=== PATIENT | female | born 1975 | race Caucasian/White ===

== ENCOUNTER → 2017-01-29 | Outpatient (CLI) | payer OTHER ==
--- NOTE | 2017-01-31 11:33 | MM ---
Reason for exam: screening (asymptomatic). Last mammogram was performed 4 years and 1 month ago. History: Family history of breast cancer in maternal aunt. Benign US left guided mammotome of the left breast, February 23, 2008. Benign US left CoreBiopsy of both breasts, February 23, 2008. Physical Findings: A clinical breast exam by your physician is recommended on an annual basis and results should be correlated with mammographic findings. MG Screening Mammo w CAD Bilateral CC and MLO view(s) were taken. Prior study comparison: January 11, 2013, bilateral digital screening mammo w/CAD. June 29, 2012, left diagnostic mammogram w/CAD. The breast tissue is heterogeneously dense. This may lower the sensitivity of mammography. Previous mammotome biopsy in the left breast x 2. There is no discrete abnormality. ASSESSMENT: Benign, BI-RAD 2 RECOMMENDATION: Routine screening mammogram of both breasts in 1 year.
== END ==
LOC: RADMAMWWP 09:26
PROVIDERS: ATTEND Obstetrics & Gynecology
DX: Z12.31 Encounter for screening mammogram for malignant neoplasm of breast (principal)

== ENCOUNTER 2017-02-22 15:44 | Emergency (ER) | payer OTHER ==
[2017-02-22] MEDS ORDERED: FAMOTIDINE 20 MG/2 ML VIAL IV STA (17:29)
--- NOTE | 2017-02-22 17:32 | ED ---
Abdominal Pain HPI - General Chief Complaint: Abdominal Pain Stated Complaint: abd pain Time Seen by Provider: 02/22/17 16:51 Source: patient, RN notes reviewed Mode of arrival: ambulatory Limitations: no limitations - History of Present Illness Initial Comments: Patient is a 41-year-old female presents to the emergency room for evaluation of abdominal pain. Patient states she has been having right upper quadrant/ midepigastric pain for the past week. Patient states she has pain every time she eats. Patient does state she has a history of gastritis. Patient states she had a cholecystectomy 2008 with no complications. Patient states that she follow-up with her primary care provider yesterday and she sent home with Protonix. Patient states she took Protonix last night with no relief of symptoms. Patient also states that she was prescribed Bentyl but has not taken that medication yet. Patient denies any significant pain at the moment. Patient states she's having 3 out of 10 pain. Patient denies any current nausea or vomiting. Patient does also states she's been having diarrhea. Patient denies new foods or recent travel outside the country. Patient denies blood in stools. Patient does state that she has been on a diet plan that is high in protein low in carbs. SPatient also states that she's been taking a few diet pills. Patient is not sure if this is what causing her symptoms. Patient states she discontinued the diet pills. Patient denies chest pain or shortness of breath. Patient denies any significant past medical history. Patient denies being on any medications besides besides what was prescribed to her yesterday. - Related Data Home Medications Medication Instructions Recorded Confirmed Pantoprazole [Protonix] 40 mg PO DAILY 02/22/17 02/22/17 Allergies Allergy/AdvReac Type Severity Reaction Status Date / Time No Known Allergies Allergy Verified 02/22/17 17:04 Review of Systems ROS Statement: Those systems with pertinent positive or pertinent negative responses have been documented in the HPI. ROS Other: All systems not noted in ROS Statement are negative. Past Medical History Additional Past Medical History / Comment(s): CONSTIPATION, DIARRHEA, HX OF POLYP History of Any Multi-Drug Resistant Organisms: None Reported Past Surgical History: Section, Cholecystectomy Additional Past Surgical History / Comment(s): COLONOSCOPY, EGD Past Anesthesia/Blood Transfusion Reactions: No Reported Reaction Past Psychological History: Depression Smoking Status: Never smoker Past Alcohol Use History: Rare Past Drug Use History: None Reported - Past Family History Father Family Medical History: Cancer General Exam - General Exam Comments Initial Comments: Sitting on exam bed, no acute distress. Limitations: no limitations General appearance: alert, in no apparent distress Head exam: Present: atraumatic, normocephalic, normal inspection Eye exam: Present: normal appearance ENT exam: Present: normal exam Neck exam: Present: normal inspection Respiratory exam: Present: normal lung sounds bilaterally. Absent: respiratory distress Cardiovascular Exam: Present: regular rate, normal rhythm, normal heart sounds GI/Abdominal exam: Present: soft, tenderness (Midepigastric), normal bowel sounds. Absent: distended, guarding, rebound, rigid Extremities exam: Present: normal inspection Back exam: Present: normal inspection Neurological exam: Present: alert, oriented X3, CN II-XII intact, normal gait Psychiatric exam: Present: normal affect, normal mood Skin exam: Present: warm, dry, intact, normal color. Absent: rash Course Vital Signs 02/22/17 16:13 Temperature 97.7 F Pulse Rate 67 Respiratory 16 Rate Blood Pressure 117/74 O2 Sat by Pulse 98 Oximetry Medical Decision Making - Medical Decision Making Patient is a 41-year-old female presents to the emergency room for epigastric pain after eating. Labs show no acute findings. CT abdomen/pelvis show no acute findings. Patient states the GI cocktail did not worsen or improve her symptoms because she's not having any significant pain at the moment. Advised patient to follow-up with GI specialist for further evaluation and possible endoscopy to rule out gastric ulcer. Advised patient to continue taking her medications as prescribed to her yesterday from her primary care provider. Patient states she understands everything that was discussed with her. Return parameters discussed. Case discussed with Dr. Rivera. - Lab Data Result diagrams: 02/22/17 17:20 02/22/17 17:20 Lab Results 02/22/17 02/22/17 02/22/17 Range/Units 17:07 17:07 17:20 WBC (3.8-10.6) k/uL RBC (3.80-5.40) m/uL Hgb (11.4-16.0) gm/dL Hct (34.0-46.0) % MCV (80.0-100.0) fL MCH (25.0-35.0) pg MCHC (31.0-37.0) g/dL RDW (11.5-15.5) % Plt Count (150-450) k/uL Neutrophils % % Lymphocytes % % Monocytes % % Eosinophils % % Basophils % % Neutrophils # (1.3-7.7) k/uL Lymphocytes # (1.0-4.8) k/uL Monocytes # (0-1.0) k/uL Eosinophils # (0-0.7) k/uL Basophils # (0-0.2) k/uL Sodium 141 (137-145) mmol/L Potassium 3.9 (3.5-5.1) mmol/L Chloride 104 (98-107) mmol/L Carbon Dioxide 24 (22-30) mmol/L Anion Gap 13 mmol/L BUN 8 (7-17) mg/dL Creatinine 0.61 (0.52-1.04) mg/dL Est GFR (MDRD) Af Amer >60 (>60 ml/min/1.73 sqM) Est GFR (MDRD) Non-Af >60 (>60 ml/min/1.73 sqM) Glucose 85 (74-99) mg/dL Calcium 9.5 (8.4-10.2) mg/dL Total Bilirubin 1.3 (0.2-1.3) mg/dL AST 28 (14-36) U/L ALT 36 (9-52) U/L Alkaline Phosphatase 83 (38-126) U/L Total Protein 7.9 (6.3-8.2) g/dL Albumin 4.5 (3.5-5.0) g/dL Amylase 78 (30-110) U/L Lipase 153 (23-300) U/L Urine Color Yellow Urine Appearance Clear (Clear) Urine pH 7.0 (5.0-8.0) Ur Specific Morris 1.010 (1.001-1.035) Urine Protein Negative (Negative) Urine Glucose (UA) Negative (Negative) Urine Ketones Negative (Negative) Urine Blood Negative (Negative) Urine Nitrite Negative (Negative) Urine Bilirubin Negative (Negative) Urine Urobilinogen <2.0 (<2.0) mg/dL Ur Leukocyte Esterase Negative (Negative) Urine HCG, Qual Not Detected (Not Detectd) 02/22/17 Range/Units 17:20 WBC 9.3 (3.8-10.6) k/uL RBC 5.14 (3.80-5.40) m/uL Hgb 15.6 (11.4-16.0) gm/dL Hct 46.1 H (34.0-46.0) % MCV 89.6 (80.0-100.0) fL MCH 30.3 (25.0-35.0) pg MCHC 33.8 (31.0-37.0) g/dL RDW 13.2 (11.5-15.5) % Plt Count 183 (150-450) k/uL Neutrophils % 59 % Lymphocytes % 24 % Monocytes % 4 % Eosinophils % 11 % Basophils % 1 % Neutrophils # 5.5 (1.3-7.7) k/uL Lymphocytes # 2.2 (1.0-4.8) k/uL Monocytes # 0.4 (0-1.0) k/uL Eosinophils # 1.0 H (0-0.7) k/uL Basophils # 0.1 (0-0.2) k/uL Sodium (137-145) mmol/L Potassium (3.5-5.1) mmol/L Chloride (98-107) mmol/L Carbon Dioxide (22-30) mmol/L Anion Gap mmol/L BUN (7-17) mg/dL Creatinine (0.52-1.04) mg/dL Est GFR (MDRD) Af Amer (>60 ml/min/1.73 sqM) Est GFR (MDRD) Non-Af (>60 ml/min/1.73 sqM) Glucose (74-99) mg/dL Calcium (8.4-10.2) mg/dL Total Bilirubin (0.2-1.3) mg/dL AST (14-36) U/L ALT (9-52) U/L Alkaline Phosphatase (38-126) U/L Total Protein (6.3-8.2) g/dL Albumin (3.5-5.0) g/dL Amylase (30-110) U/L Lipase (23-300) U/L Urine Color Urine Appearance (Clear) Urine pH (5.0-8.0) Ur Specific Morris (1.001-1.035) Urine Protein (Negative) Urine Glucose (UA) (Negative) Urine Ketones (Negative) Urine Blood (Negative) Urine Nitrite (Negative) Urine Bilirubin (Negative) Urine Urobilinogen (<2.0) mg/dL Ur Leukocyte Esterase (Negative) Urine HCG, Qual (Not Detectd) - Radiology Data Radiology results: report reviewed, image reviewed Disposition Clinical Impression: Abdominal pain, GERD (gastroesophageal reflux disease) Disposition: HOME SELF-CARE Condition: Good Instructions: Gastroesophageal Reflux Disease (ED), Diet for Stomach Ulcers and Gastritis (ED) Additional Instructions: Please follow up with GI specialist for further evaluation. Continue taking Protonix as directed. If any new symptom arises or symptoms worsen, return to ER as soon as possible. Referrals: Britni Tadeo MD [Primary Care Provider] - 1-2 days Tiesha La MD [STAFF PHYSICIAN] - 1-2 days Time of Disposition: 19:40
[2017-02-22 17:33] LABS: Appearance,Urine Clear (Clear); Bilirubin,Urine Negative (Negative); Glucose,Urine (UA) Negative (Negative); Ketones,Urine Negative (Negative); Leukocyte Esterase,Urine Negative (Negative); Nitrite,Urine Negative (Negative); Protein,Urine Negative (Negative); UA Billing (MACRO vs. MICRO) CHEM; Urobilinogen,Urine <2.0 mg/dL (<2.0)
[2017-02-22 17:36] LABS: Basophils # (A) 0.1 k/uL (0-0.2); Basophils % (A) 1 %; CH 30.8; CHCM 34.6; Eosinophils % (A) 11 %; HCT 46.1 % (34.0-46.0); HDW 2.48; HGB 15.6 gm/dL (11.4-16.0); Luc # (Auto) 0.16; Luc % (Auto) 2; Lymphocytes # (A) 2.2 k/uL (1.0-4.8); Lymphocytes % (A) 24 %; MCH 30.3 pg (25.0-35.0); MCHC 33.8 g/dL (31.0-37.0); MCV 89.6 fL (80.0-100.0); Mean Platelet Volume 9.1; Monocytes # (A) 0.4 k/uL (0-1.0); Monocytes % (A) 4 %; Neutrophils # (A) 5.5 k/uL (1.3-7.7); Neutrophils % (A) 59 %; RBC 5.14 m/uL (3.80-5.40); RDW 13.2 % (11.5-15.5); WBC 9.3 k/uL (3.8-10.6); WBC (Perox) 9.33
[2017-02-22 17:44] LABS: ALT 36 U/L (9-52); AST 28 U/L (14-36); Alkaline Phosphatase 83 U/L (38-126); Amylase 78 U/L (30-110); Anion Gap 13 mmol/L; Blood Urea Nitrogen 8 mg/dL (7-17); Calcium 9.5 mg/dL (8.4-10.2); Carbon Dioxide 24 mmol/L (22-30); Chloride 104 mmol/L (98-107); Glucose 85 mg/dL (74-99); Non-African American GFR(MDRD) >60 (>60 ml/min/1.73 sqM); Potassium 3.9 mmol/L (3.5-5.1); Sodium 141 mmol/L (137-145); Total Bilirubin 1.3 mg/dL (0.2-1.3); Total Protein 7.9 g/dL (6.3-8.2)
--- NOTE | 2017-02-22 18:03 | XR ---
EXAMINATION TYPE: Abdominal radiographs x2 DATE OF EXAM: 02/22/2017 5:42 PM COMPARISON: NONE HISTORY: Epigastric pain radiating around to the back with nausea for a week TECHNIQUE: 2 upright radiographs. FINDINGS: There is no pneumatosis and no pneumoperitoneum. The bowel gas pattern is negative. There i s no evidence of soft tissue mass, and the skeletal structures are unremarkable. Cholecystectomy surg ical clips are incidentally noted. The visualized lung bases and pleural spaces are negative. IMPRESSION: No acute process.
[2017-02-22] MEDS ORDERED: RX INFO: IV CONTRAST WAS GIVEN 1 EACH MISC MISCELLANE PRN (18:24)
[2017-02-22] MEDS ORDERED: MAG HYDROX/AL HYDROX/SIMETH 30 ML, HYOSCYAMINE ELIXIR 10 ML, CIMETIDINE HCL 300 MG, LID... PO STA ×4 (18:25)
--- NOTE | 2017-02-22 19:34 | CT ---
EXAMINATION TYPE: CT abdomen pelvis w con DATE OF EXAM: 02/22/2017 6:54 PM COMPARISON: NONE HISTORY: Pt states of epigastric pain after eating x1 week. CT DLP: 667.6 mGycm Automated exposure control for dose reduction was used. TECHNIQUE: Helical acquisition of images was performed from the lung bases through the pelvis. CONTRAST: Performed without Oral Contrast and with IV Contrast, patient injected with 100 mL of Omnipaque 300. FINDINGS: LUNG BASES: No significant abnormality is appreciated. LIVER/GB: No significant abnormality is appreciated. PANCREAS: No significant abnormality is seen. SPLEEN: No significant abnormality is seen. ADRENALS: No significant abnormality is seen. KIDNEYS: No significant abnormality is seen. RETROPERITONEAL ADENOPATHY: None visualized REPRODUCTIVE ORGANS: No significant abnormality is seen URINARY BLADDER: No significant abnormality is seen. PELVIC ADENOPATHY: None visualized. OSSEOUS STRUCTURES: No significant abnormality is seen. BOWEL: No significant abnormality is seen. OTHER: Incidental note is made of bilateral prominent adnexal/broad ligament varices. The uterus is n ot enlarged and has otherwise normal CT appearance. IMPRESSION: NO ACUTE PROCESS.
[2017-02-22 20:11] VITALS: BP 108/65; PULSE 66; RESP 18; TEMP 97.9
== END 2017-02-22 20:11 | disposition home or self-care (01) ==
LOC: EC 15:44
DX: K21.9 Gastro-esophageal reflux disease without esophagitis (principal); Z79.899 Other long term (current) drug therapy
CPT/HCPCS: 36415; 80053; 82150; 83690; 85025; 81003; 81025; 74000; 74177; 99284; Q9967

== ENCOUNTER 2017-02-28 12:12 | Day surgery (SDC) | payer OTHER ==
[2017-02-24 15:47] VITALS: BMI 32.8
[~2017-02-28 12:12] MED LIST: LACTATED RINGERS 1,000 ML IV SCH
[2017-02-28] MEDS ORDERED: LACTATED RINGERS 1,000 ML IV ONE (12:26)
[2017-02-28 12:35] VITALS: TEMP 98
[2017-02-28] MEDS ORDERED: LIDOCAINE 1% 20 ML VIAL (10MG/ML) FOR IV START INTRADERMA ONE (12:48)
[2017-02-28] MEDS ORDERED: LIDOCAINE 1% INJ 10MG/ML (20 ML MDV) ONE (13:42)
[2017-02-28] MEDS ORDERED: PROPOFOL 10 MG/ML 20 ML VIAL IV ONE (13:42)
[2017-02-28 14:09] VITALS: PULSE 70
--- NOTE | 2017-02-28 14:11 | P.PCN ---
Date of Procedure: 02/28/17 Procedure(s) Performed: Procedure: Esophagogastroduodenoscopy and biopsy. Preoperative diagnosis: Acute epigastric pain rule out peptic ulcer disease. Postoperative diagnosis: Small sliding hiatal hernia with no obvious esophagitis or complicated reflux disease. Mild antral gastritis. No ulcers, gastric outlet obstruction or bleeding. Multiple biopsies obtained from the duodenum, antrum and esophagus. Preparation and sedation: Was provided by anesthesia. Brief clinical history: The patient is a 41-year-old female who is referred for this evaluation for acute onset of epigastric pain for possible peptic ulcer disease. The patient had prior cholecystectomy. She had an upper endoscopy and colonoscopy back in August 2016 for chronic stomach upset symptoms of around 6 months duration and was found to have mild gastritis. The patient received Zantac which she was still taking until the onset of her current symptoms around 1-1/2 to 2 weeks ago. The patient has been complaining of postprandial epigastric pain and indigestion feeling that would last for several hours. Associated with nausea but no vomiting. For the last week, she was having diarrhea as well. The patient was started on Protonix as outpatient, however, as she has not improved, this evaluation was requested to rule out peptic ulcer disease or other pathology. Procedure: With the patient on her left lateral decubitus position and after informed consent and adequate sedation, I passed the Olympus-GIF 160 video upper endoscope through the cricopharyngeus down the esophagus. GE junction was around 35-36 cm from the incisors and there was a small sliding hiatal hernia. The esophagus did not show any obvious erosions, ulcers, strictures or Mercedes's esophagus. The endoscope was then advanced into the stomach which was insufflated with air and inspected in detail including the retroflex view in the cardia. There was some mottling and erythema in the antrum but no ulcers or erosions. Pyloric channel did not show any ulcers. Duodenal bulb, post bulbar area and descending duodenum showed minimal erythema with no ulcers or erosions. I obtained multiple biopsies from the duodenum, antrum and esophagus then the endoscope was withdrawn. The patient tolerated the procedure well. Plan: The patient was reassured. Will await biopsy results. She will follow- up with you as planned and further plans will be made based on her course.
[2017-02-28 14:28] VITALS: BP 118/56; RESP 18
== END 2017-02-28 14:43 | disposition home or self-care (01) ==
LOC: ORWHC2ENDO 12:12
DX: K29.50 Unspecified chronic gastritis without bleeding (principal); K44.9 Diaphragmatic hernia without obstruction or gangrene; K21.9 Gastro-esophageal reflux disease without esophagitis; R13.10 Dysphagia, unspecified; Z79.899 Other long term (current) drug therapy
CPT/HCPCS: 81025; 88305; 88342; 43239; J2001; J2704

== ENCOUNTER → 2017-12-15 | Outpatient (CLI) | payer OTHER | END | disposition home or self-care (01) | LOC: LABWHC1 12:30 | PROVIDERS: ATTEND Internal Medicine | DX: R50.9 Fever, unspecified (principal); K52.9 Noninfective gastroenteritis and colitis, unspecified | CPT/HCPCS: 87502 ==

== ENCOUNTER → 2018-03-01 | Outpatient (CLI) | payer OTHER ==
--- NOTE | 2018-03-01 11:29 | MM ---
Reason for exam: clinical finding. Last mammogram was performed 1 year and 1 month ago. History: Family history of breast cancer in maternal aunt. Benign US left guided mammotome of the left breast, February 23, 2008. Benign US left CoreBiopsy of both breasts, February 23, 2008. Physical Findings: Nurse Summary: 0.5cm nodule in the left breast at 3 o'clock (nurse tracie). MG Diagnostic Mammo w CAD PETER Bilateral CC and MLO view(s) were taken. Prior study comparison: January 29, 2017, bilateral MG screening mammo w CAD. January 11, 2013, bilateral digital screening mammo w/CAD. The breast tissue is heterogeneously dense. This may lower the sensitivity of mammography. Finding: There is an equal density (isodense), indistinct irregular mass in the upper quadrant, posterior position of the right breast, different in appearance, likely projectional. Previous mammotome biopsy in the left breast x 2. New finding since January 29, 2017 and January 11, 2013. These results were verbally communicated with the patient and result sheet given to the patient on 03/01/18. ASSESSMENT: Incomplete: need additional imaging evaluation, BI-RAD 0 RECOMMENDATION: Ultrasound of the right breast.
--- NOTE | 2018-03-01 11:30 | USB ---
Reason for exam: additional evaluation requested from abnormal screening. History: Family history of breast cancer in maternal aunt. Benign US left guided mammotome of the left breast, February 23, 2008. Benign US left CoreBiopsy of both breasts, February 23, 2008. US Breast Limited RT Right breast ultrasound demonstrates a 0.3 x 0.2 x 0.4cm lesion too small to characterize at 3 o'clock. These results were verbally communicated with the patient and result sheet given to the patient on 03/01/18. ASSESSMENT: Probably benign, BI-RAD 3 RECOMMENDATION: Follow-up diagnostic mammogram of the right breast in 6 months.
== END | disposition home or self-care (01) ==
LOC: RADMAMWWP 10:14
PROVIDERS: ATTEND Obstetrics & Gynecology
DX: N63.10 Unspecified lump in the right breast, unspecified quadrant (principal)
CPT/HCPCS: 77066

== ENCOUNTER → 2018-05-30 | Outpatient (CLI) | payer OTHER ==
--- NOTE | 2018-05-30 10:24 | MM ---
Reason for exam: follow-up at short interval from prior study. Last mammogram was performed 3 months ago. History: Family history of breast cancer in maternal aunt. Benign US left guided mammotome of the left breast, February 23, 2008. Benign US left CoreBiopsy of both breasts, February 23, 2008. Physical Findings: Nurse Summary: 0.5cm nodule in the right breast at 3 o'clock (nurse mj). MG 3D Diag Mammo W/Cad RT CC, MLO, and ML view(s) were taken of the right breast. Prior study comparison: March 01, 2018, bilateral MG diagnostic mammo w CAD PETER. January 29, 2017, bilateral MG screening mammo w CAD. The breast tissue is heterogeneously dense. This may lower the sensitivity of mammography. The known 3 o'clock, 4cm from nipple, 4mm mass seen sonographically 03/01/18 is not seen mammographically and will be followed with ultrasound today. Upper outer quadrant focal asymmetry at posterior depth appears similar to the prior. However, precautionary ultrasound will be performed. These results were verbally communicated with the patient and result sheet given to the patient on 05/30/18. ASSESSMENT: Incomplete: need additional imaging evaluation, BI-RAD 0 RECOMMENDATION: Ultrasound of the right breast. (upper right breast and retroareolar palpable)
--- NOTE | 2018-05-30 10:28 | USB ---
Reason for exam: additional evaluation requested from abnormal screening. History: Family history of breast cancer in maternal aunt. Benign US left guided mammotome of the left breast, February 23, 2008. Benign US left CoreBiopsy of both breasts, February 23, 2008. US Breast Limited RT Right limited breast ultrasound including focal area of concern, retroareolar and axilla demonstrates a 5 x 4 x 5mm oval, cystic lesion at 11 o'clock, a 3 x 2 x 3mm oval, cystic lesion at 3 o'clock appears cystic today and smaller than prior however being this appeared solid on the prior a 6 month follow up ultrasound remains recommended and a 5mm oval, lymph node at the axilla tail, morphologically normal. These results were verbally communicated with the patient and result sheet given to the patient on 05/30/18. ASSESSMENT: Probably benign, BI-RAD 3 RECOMMENDATION: Ultrasound and follow-up diagnostic mammogram of the right breast in 6 months. (for superior asymmetry on ML view only)
== END | disposition home or self-care (01) ==
LOC: RADMAMWWP 08:55
PROVIDERS: ATTEND Surgery
DX: R92.8 Other abnormal and inconclusive findings on diagnostic imaging of breast (principal)
CPT/HCPCS: 77061; 77065

== ENCOUNTER → 2018-12-04 | Outpatient (CLI) | payer OTHER ==
--- NOTE | 2018-12-05 15:19 | MM ---
Reason for exam: follow-up at short interval from prior study. Last mammogram was performed 6 months ago. History: Family history of breast cancer in maternal aunt. Benign US left guided mammotome of the left breast, February 23, 2008. Benign US left CoreBiopsy of both breasts, February 23, 2008. Indicated problem(s): other indicated problem in the right breast. Physical Findings: Nurse Summary: less than a 1 cm movable lesion right breast. MG 3D Diag Mammo W/Cad RT CC and MLO view(s) were taken of the right breast. Prior study comparison: May 30, 2018, right breast MG 3d diag mammo w/cad RT. March 01, 2018, bilateral MG diagnostic mammo w CAD PETER. The breast tissue is heterogeneously dense. This may lower the sensitivity of mammography. There are benign-appearing round calcification in the right breast. No discrete abnormality. These results were verbally communicated with the patient and result sheet given to the patient on 12/04/18. ASSESSMENT: Incomplete: need additional imaging evaluation, BI-RAD 0 RECOMMENDATION: Ultrasound of the right breast.
--- NOTE | 2018-12-05 15:26 | USB ---
Reason for exam: clinical finding. History: Family history of breast cancer in maternal aunt. Benign US left guided mammotome of the left breast, February 23, 2008. Benign US left CoreBiopsy of both breasts, February 23, 2008. Indicated problem(s): palpable abnormality in the right breast. Physical Findings: Nurse Summary: less than a 1 cm palpable abnormality right breast. US Breast RT Right complete breast ultrasound includes all four quadrants, the retroareolar region and axilla. Finding demonstrates a 4 x 2 x 3 mm cystic lesion at 3 o'clock, a 4 x 3 x 4 mm cluster cystic lesion at 11 o'clock and at the palpable ductal ectasia is seen. These results were verbally communicated with the patient and result sheet given to the patient on 12/04/18. ASSESSMENT: Benign, BI-RAD 2 RECOMMENDATION: Routine screening mammogram of both breasts in 6 months.
== END | disposition home or self-care (01) ==
LOC: RADMAMWWP 08:56
PROVIDERS: ATTEND Surgery
DX: R92.8 Other abnormal and inconclusive findings on diagnostic imaging of breast (principal)
CPT/HCPCS: 77061; 77065

== ENCOUNTER → 2019-06-04 | Outpatient (CLI) | payer OTHER ==
--- NOTE | 2019-06-05 13:17 | MM ---
Reason for exam: screening (asymptomatic). Last mammogram was performed 6 months ago. History: Family history of breast cancer in maternal aunt. Benign US left guided mammotome of the left breast, February 23, 2008. Benign US left CoreBiopsy of both breasts, February 23, 2008. Physical Findings: A clinical breast exam by your physician is recommended on an annual basis and results should be correlated with mammographic findings. MG Screening Mammo w CAD Bilateral CC and MLO view(s) were taken. Prior study comparison: December 04, 2018, right breast MG 3d diag mammo w/cad RT. May 30, 2018, right breast MG 3d diag mammo w/cad RT. The breast tissue is heterogeneously dense. This may lower the sensitivity of mammography. No suspicious abnormality. Left biopsy markers noted. No significant changes when compared with prior studies. ASSESSMENT: Negative, BI-RAD 1 RECOMMENDATION: Routine screening mammogram of both breasts in 1 year.
== END | disposition home or self-care (01) ==
LOC: RADMAMWWP 10:00
PROVIDERS: ATTEND Surgery
DX: Z12.31 Encounter for screening mammogram for malignant neoplasm of breast (principal)
CPT/HCPCS: 77067

== ENCOUNTER 2019-07-22 15:33 | Emergency (ER) | payer OTHER ==
[2019-07-22 15:45] VITALS: BP 119/73; PULSE 97; RESP 20; TEMP 97.7
[2019-07-22] MEDS ORDERED: LORazepam 1 MG TAB PO STA (16:01)
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
== END 2019-07-22 17:02 | disposition home or self-care (01) ==
LOC: EC 15:33
DX: R22.32 Localized swelling, mass and lump, left upper limb (principal); Z79.899 Other long term (current) drug therapy; V43.52XA Car driver injured in collision with other type car in traffic accident, initial encounter; W22.11XA Striking against or struck by driver side automobile airbag, initial encounter; Y92.410 Unspecified street and highway as the place of occurrence of the external cause
CPT/HCPCS: 99284

== ENCOUNTER → 2019-11-19 | Outpatient (CLI) | payer OTHER ==
--- NOTE | 2019-11-20 07:18 | US ---
EXAMINATION TYPE: US transvaginal DATE OF EXAM: 11/19/2019 COMPARISON: CT 2017 CLINICAL HISTORY: R10.2 PELVIC PAIN. Intermittent pelvic pain/pressure x 1 month; TECHNIQUE: TV US. Transvaginal sonographic images were medically necessary per physician's order Date of LMP: 11/10/2019 EXAM MEASUREMENTS: Uterus: 9.6 x 5.7 x 4.5 cm Endometrial Stripe: 0.8 cm upper right endometrium and 0.7cm upper left endometrium Right Ovary: 2.5 x 2.4 x 1.5 cm Left Ovary: 2.6 x 2.0 x 1.8 cm 1. Uterus: Anteverted; small amount of free fluid in cervix = 0.8 x 0.7 x 0.1cm 2. Endometrium: arcuate appearance to upper endometrium; thicker for Day 10LMP 3. Right Ovary: multifollicular with largest cyst = 0.8 x 0.8 x 1.0cm 4. Left Ovary: multiple follicles with largest = 0.5 x 0.7 x 0.6cm Spectral, color and waveform Doppler imaging shows good arterial and venous flow within the ovaries ; . 5. Bilateral Adnexa: wnl 6. Posterior cul-de-sac: wnl Heterogeneous uterus with somewhat arcuate-type morphology appreciated on transverse imaging. Tiny fr ee fluid in the endometrial canal at level cervix. Endometrial stripe measures upper limits of normal for late proliferative cycle. No free fluid in pelvis. Both ovaries are seen and normal in size with scattered small follicles IMPRESSION: No suspicious findings seen to account for patient's symptoms of intermittent pelvic pain and pressure.
== END | disposition home or self-care (01) ==
LOC: RADUSWWP 15:24
PROVIDERS: ATTEND Family Medicine
DX: R10.2 Pelvic and perineal pain (principal)
CPT/HCPCS: 76830

== ENCOUNTER → 2021-02-24 | Outpatient (CLI) | payer OTHER ==
--- NOTE | 2021-02-24 16:31 | US ---
EXAMINATION TYPE: US thyroid st tissue head/neck DATE OF EXAM: 02/24/2021 COMPARISON: NONE CLINICAL HISTORY: 45-year-old female R13.10 Dysphagia. TECHNIQUE: Multiple sonographic images of the thyroid gland are obtained. FINDINGS: GLAND SIZE: Right Lobe: 5.0 x 1.7 x 1.9 cm Overall Parenchyma: homogenous Left Lobe: 4.8 x 1.2 x 1.5 cm Overall Parenchyma: homogeneous Isthmus Thickness: .3 cm NODULES RIGHT: # of nodules measured on right: 0 LEFT: # of nodules measured on left: 0 ISTHMUS: # of nodules measured in the isthmus: 0 Bilateral neck scanned, no evidence of lymphadenopathy. IMPRESSION: Borderline thyromegaly. No discrete nodules.
== END | disposition home or self-care (01) ==
LOC: RADUSWWP 14:15
PROVIDERS: ATTEND Family Medicine
DX: R13.10 Dysphagia, unspecified (principal)
CPT/HCPCS: 76536

== ENCOUNTER → 2021-03-12 | Outpatient (CLI) | payer OTHER | END | disposition home or self-care (01) | LOC: RADECHMAIN 08:19 | PROVIDERS: ATTEND Family Medicine | DX: R00.2 Palpitations (principal) | CPT/HCPCS: 93270 ==

== ENCOUNTER 2021-03-23 08:03 | Day surgery (SDC) | payer OTHER ==
[2021-03-18 15:26] VITALS: BMI 35.6
[~2021-03-23 08:03] MED LIST changes: +LIDOCAINE 1% (10MG/ML) FOR IV START INTRADERMA PRN
[2021-03-23 08:50] VITALS: TEMP 98.3
[2021-03-23] MEDS ORDERED: PROPOFOL 10 MG/ML 20 ML VIAL IV ONE (09:10)
[2021-03-23] MEDS ORDERED: LIDOCAINE 1% INJ 10MG/ML (20 ML MDV) ONE (09:10)
--- NOTE | 2021-03-23 09:28 | P.PCN ---
Date of Procedure: 03/23/21 Description of Procedure: BRIEF HISTORY: Patient is a 45-year-old female presenting for outpatient esophagogastroduodenoscopy for evaluation of GERD without esophagitis. Patient has reported symptoms of epigastric abdominal pain. She started on a course of omeprazole therapy with no improvement. She also reports some globus sensation and difficulty swallowing at times. Previously the patient had EGD in 02/2017 with findings of mild gastritis and small hiatal hernia. She does report a family history of esophageal cancer in her mother.. PROCEDURE PERFORMED: Esophagogastroduodenoscopy with biopsy. PREOPERATIVE DIAGNOSIS: GERD without esophagitis, globus. ESTIMATED BLOOD LOSS: Minimal. IV sedation per anesthesia. PROCEDURE: After informed consent was obtained, the patient was brought into the endoscopy unit. IV sedation was administered by Anesthesia under continuous monitoring. Initially the Olympus GIF-190 video endoscope was inserted into the mouth. Esophagus intubated without any difficulty. It was gradually advanced into the stomach and duodenum and carefully examined. The bulb and the second part of the duodenum appeared normal, with biopsies of the duodenum taken. The scope at this time was withdrawn to the stomach, adequately insufflated with air, and upon careful examination, mucosa of the antrum, body, cardia and the fundus appeared normal, Except for some mild punctate erythema in the antrum and body suggestive of mild gastritis biopsies taken. The scope was then withdrawn into the esophagus. The GE junction was located at 37 cm from the incisors, With a small 2 cm hiatal hernia noted. Biopsies of lower esophagus were taken. The e sophagus appeared normal. There were no erosions or ulcerations seen and the patient tolerated the procedure well. IMPRESSION: 1. Mild gastritis . 2. Small hiatal hernia. 3. Biopsies of the duodenum, antrum body and lower esophagus. RECOMMENDATIONS: The findings of this examination were discussed with the patient and her family. Okay to resume diet. Okay to resume medications. Await pathology from biopsies. Follow up in the GI clinic as needed. Can consider a retrial of PPI therapy to see if there is any symptomatic improvement.
[2021-03-23 09:47] VITALS: RESP 16
[2021-03-23 10:33] VITALS: BP 116/68; PULSE 65
== END 2021-03-23 10:34 | disposition home or self-care (01) ==
LOC: ORWHC2ENDO 08:03
PROVIDERS: ATTEND Internal Medicine
DX: K29.50 Unspecified chronic gastritis without bleeding (principal); K21.9 Gastro-esophageal reflux disease without esophagitis; Z80.0 Family history of malignant neoplasm of digestive organs; Z79.899 Other long term (current) drug therapy
CPT/HCPCS: 81025; 88305; 43239; J2001; J2704

== ENCOUNTER → 2021-04-22 | Outpatient (CLI) | payer OTHER ==
--- NOTE | 2021-04-23 10:38 | MM ---
Reason for exam: screening (asymptomatic). Last mammogram was performed 1 year and 11 months ago. History: Family history of breast cancer in maternal aunt. Benign US left guided mammotome of the left breast, February 23, 2008. Benign US left CoreBiopsy of both breasts, February 23, 2008. Physical Findings: A clinical breast exam by your physician is recommended on an annual basis and results should be correlated with mammographic findings. MG 3D Screening Mammo W/Cad Bilateral CC and MLO view(s) were taken. Prior study comparison: June 04, 2019, bilateral MG screening mammo w CAD. December 04, 2018, right breast MG 3d diag mammo w/cad RT. The breast tissue is heterogeneously dense. This may lower the sensitivity of mammography. Finding: There is a new 4 mm obscured round mass in the anterior position of the right breast on CC 40/74 and MLO view Previous mammotome biopsy in the left breast x 2. There is a chronic nodularity in the left breast, 9mm, increased in size, no prior left breast ultrasound, upper outer quadrant middle depth. ASSESSMENT: Incomplete: need additional imaging evaluation, BI-RAD 0 RECOMMENDATION: Ultrasound of both breasts. [facility] will attempt to contact patient to return for ultrasound.
== END | disposition home or self-care (01) ==
LOC: RADMAMWWP 15:56
PROVIDERS: ATTEND Obstetrics & Gynecology
DX: Z12.31 Encounter for screening mammogram for malignant neoplasm of breast (principal); Z80.3 Family history of malignant neoplasm of breast
CPT/HCPCS: 77063; 77067

== ENCOUNTER → 2021-04-30 | Outpatient (CLI) | payer OTHER ==
--- NOTE | 2021-04-30 16:22 | FL ---
EXAMINATION TYPE: FL barium swallow DATE OF EXAM: 04/30/2021 CLINICAL HISTORY: 45-year-old with chest discomfort. Constipation and diarrhea. Fullness in throat. Fluoroscopy time is 2 minutes and 1 second TECHNIQUE: A double contrast esophagram is performed utilizing air and barium. COMPARISON: None FINDINGS: The esophagus shows normal motility and emptying into the stomach. There is a small sliding-type hiat al hernia.. No significant gastroesophageal reflux was seen during real time performance of this stud y. Stomach and proximal small bowel are grossly unremarkable. Surgical clips in the right upper quadr ant. IMPRESSION: 1. Small sliding-type hiatal hernia. No evidence of gastroesophageal reflux.
== END | disposition home or self-care (01) ==
LOC: RADUSWWP 08:01
PROVIDERS: ATTEND Otolaryngology
DX: K59.00 Constipation, unspecified (principal); K44.9 Diaphragmatic hernia without obstruction or gangrene
CPT/HCPCS: 74220

== ENCOUNTER → 2021-05-06 | Outpatient (CLI) | payer OTHER ==
[2021-05-07 04:00] LABS: Thyroid Peroxidase Antibodies <28.0 U/mL (0.0-60.0)
== END | disposition home or self-care (01) ==
LOC: LABWHC1 12:31
PROVIDERS: ATTEND Otolaryngology
DX: E01.0 Iodine-deficiency related diffuse (endemic) goiter (principal); M79.10 Myalgia, unspecified site; R53.83 Other fatigue
CPT/HCPCS: 36415; 84439; 84443; 86038; 86376; 86431

== ENCOUNTER → 2021-05-25 | Outpatient (CLI) | payer OTHER ==
--- NOTE | 2021-05-26 08:59 | USB ---
Reason for exam: additional evaluation requested from abnormal screening. History: Family history of breast cancer in maternal aunt. Benign US left guided mammotome of the left breast, February 23, 2008. Benign US left CoreBiopsy of both breasts, February 23, 2008. Physical Findings: Nurse did not find any significant physical abnormalities on exam. US Breast Workup Limited PETER Right limited breast ultrasound including focal area of concern, retroareolar and axilla demonstrates a 0.4 x 0.3 x 0.3cm cystic, complex lesion with septations at 6 o'clock and a 0.4 x 0.2 x 0.3cm cystic lesion at 9 o'clock, may corresond to mammographic nodule. Left limited breast ultrasound including focal area of concern, retroareolar and axilla demonstrates a 0.8 x 0.5 x 0.7cm lymph node at 3 o'clock, corresponds to mammogram, benign appearing. Left breast back to screening mammogram in 1 year. These results were verbally communicated with the patient and result sheet given to the patient on 05/25/21. ASSESSMENT: Probably benign, BI-RAD 3 RECOMMENDATION: Ultrasound of the right breast in 6 months.
== END | disposition home or self-care (01) ==
LOC: RADUSWWP 14:20
PROVIDERS: ATTEND Obstetrics & Gynecology
DX: N60.01 Solitary cyst of right breast (principal); Z80.3 Family history of malignant neoplasm of breast

== ENCOUNTER → 2021-12-14 | Outpatient (CLI) | payer BC ==
--- NOTE | 2021-12-14 10:27 | USB ---
Reason for exam: follow-up at short interval from prior study. History: Family history of breast cancer in maternal aunt. Benign US left guided mammotome of the left breast, February 23, 2008. Benign US left CoreBiopsy of both breasts, February 23, 2008. Physical Findings: Nurse did not find any significant physical abnormalities on exam. US Breast Limited RT Right limited breast ultrasound including focal area of concern, retroareolar and axilla demonstrates a 3 x 3 x 3mm oval, mixed, stable lesion at 6 o'clock, unchanged, a 3 x 2 x 3mm oval, cystic, stable lesion at 9 o'clock, unchanged and duct ectasia. These results were verbally communicated with the patient and result sheet given to the patient on 12/14/21. ASSESSMENT: Probably benign, BI-RAD 3 RECOMMENDATION: Ultrasound of the right breast in 6 months. Return to routine screening mammogram schedule for both breasts. Back on schedule for March 2022.
== END | disposition home or self-care (01) ==
LOC: RADUSWWP 09:33
PROVIDERS: ATTEND Obstetrics & Gynecology
DX: N60.01 Solitary cyst of right breast (principal); Z80.3 Family history of malignant neoplasm of breast

== ENCOUNTER → 2022-01-01 | Outpatient (CLI) | payer BC ==
--- NOTE | 2022-01-01 11:11 | CT ---
EXAMINATION TYPE: CT abdomen pelvis w con DATE OF EXAM: 01/01/2022 COMPARISON: 02/22/2017 HISTORY: 46-year-old female R1 0.31, right lower quadrant pain, Abdomen Pain TECHNIQUE: Contiguous axial scanning of the abdomen and pelvis following administration of 100 ml Iso ene 300 IV contrast. Delayed images through the kidneys and coronal/sagittal reconstructions perform ed. CT DLP: 918.7 mGycm Automated exposure control for dose reduction was used. FINDINGS: Heart normal size without pericardial effusion. Lung bases clear without pleural effusion. Small hiatal hernia. No focal liver lesion or biliary ductal dilatation. Portal venous system is patent. Cholecystectomy clips. Adrenal glands, spleen, small hilar splenule, and pancreas appear within normal limits. 4.5 cm left upper to midpole renal cyst versus 3.5 cm, previously. There is mild bilateral pelvicaliectasis and mild fullness of the bilateral ureters. No dilated small bowel, free fluid, or free air. No mesenteric or retroperitoneal lymphadenopathy. Normal appendix. Oral contrast progressed to the distal transverse colon. No significant stool burden . Mild to moderate stool within the distal sigmoid and rectum and some oral contrast material seen he re as well. Marked distention of the urinary bladder up to 12.2 cm wide filling the pelvis identified and 13.2 cm craniocaudal. Uterus is anteverted. Both ovaries are visualized. There is a crenulated, peripherally enhancing cyst ic appearing structure measuring 1.6 cm in the left ovary. In addition, there may be a 2.3 cm additio nal cystic structure of the left ovary. No abnormal fluid collection in the pelvis or pelvic lymphade nopathy. Bones: Mild degenerative spurring at both hips. No osseous destructive process. Mild degenerative dis c disease lower thoracic spine. IMPRESSION: 1. PROMINENT DISTENTION OF THE URINARY BLADDER FILLING THE PELVIS SIDE TO SIDE AND UP TO 13.2 CM CRAN IOCAUDAL. GIVEN MILD PELVICALIECTASIS/FULLNESS OF THE RENAL COLLECTING SYSTEMS, CORRELATE TO EXCLUDE BLADDER OUTLET OBSTRUCTION. 2. SUSPECT A 1.6 CM CORPUS LUTEUM LEFT OVARY AND PROBABLE ADDITIONAL 2.3 CM LEFT OVARIAN DOMINANT FOL LICLE. PELVIC ULTRASOUND FOLLOW-UP IN 6-8 WEEKS TO BETTER CHARACTERIZE AND ASSESS FOR INVOLUTION. 3. A BENIGN LEFT RENAL CYST HAS GROWN IN THE INTERVAL NOW MEASURING 4.5 CM VERSUS 3.5 CM IN 2017. 4. SMALL HIATAL HERNIA.
== END | disposition home or self-care (01) ==
LOC: RADCTMAIN 07:57
PROVIDERS: ATTEND Family Medicine
DX: K44.9 Diaphragmatic hernia without obstruction or gangrene (principal); N32.89 Other specified disorders of bladder; N28.89 Other specified disorders of kidney and ureter
CPT/HCPCS: 74177; Q9967 ×2

== ENCOUNTER → 2022-01-18 | Outpatient (CLI) | payer BC ==
--- NOTE | 2022-01-18 16:31 | US ---
EXAMINATION TYPE: US bladder DATE OF EXAM: 01/18/2022 COMPARISON: CT 01/01/22, 02/22/17 CLINICAL HISTORY: N32.0 Bladder outlet obstruction. EXAM MEASUREMENTS: Post Void Residual Volume: 31.1 mL. Normal less than 50 mL. There is a cyst at the superior pole left kidney. Some mild prominence of the right renal collecting system is noted. Color Doppler performed to assess ureteral jets. Bilateral Jets seen: Yes Normal Post Void Residual (less than 50ml): Yes Bladder wnl. Urinary bladder appears sonolucent. The posterior wall is normal. Ureteral jets appear u nremarkable. IMPRESSION: 1. Normal ultrasound of urinary bladder. No significant post void residual. 2. Mild right hydronephrosis.
== END | disposition home or self-care (01) ==
LOC: RADUSWWP 13:52
PROVIDERS: ATTEND Family Medicine
DX: N13.30 Unspecified hydronephrosis (principal)
CPT/HCPCS: 76857

== ENCOUNTER → 2022-02-18 | Outpatient (CLI) | payer BC ==
--- NOTE | 2022-02-18 10:25 | US ---
EXAMINATION TYPE: US transvaginal DATE OF EXAM: 02/18/2022 COMPARISON: US, CT CLINICAL HISTORY: N83.299. Complex ovarian cyst. Hx 3 C Sections. . TECHNIQUE: Transvaginal (TV). Date of LMP: 02/06/2022 EXAM MEASUREMENTS: Uterus: 9.6 x 5.9 x 5.3 cm Endometrial Stripe: Arcuate appearance of uterus. Right upper endometrium: 0.5 cm. Left upper endomet rium: 0.7 cm. Right Ovary: 3.5 x 2.2 x 2.1 cm Left Ovary: 2.8 x 1.5 x 1.4 cm 1. Uterus: Anteverted Appears heterogeneous. 2. Endometrium: Fluid seen within cervix: 1.7 x 0.8 x 0.3 cm. Left endo appears slightly thicker for Day 13 3. Right Ovary: Anechoic area seen: 1.0 x 1.1 x 1.2 cm.. Previous 2.3 cm right ovarian cyst is not i dentified. 4. Left Ovary: Subcentimeter anechoic areas seen. Previous 1.6 mL left ovarian cyst not identified. Spectral, color and waveform doppler imaging shows good arterial and venous flow within the right o vary. There is no evidence for ovarian torsion within the right ovary.- Flow assessed due to patient' s shooting pain within the right pelvic area. 5. Bilateral Adnexa: Prominent vascularity within the left adnexa. 6. Posterior cul-de-sac: Fluid seen. IMPRESSION: 1. Some fluid within the endometrial canals of an arcuate uterus. 2. No suspicious ovarian cysts.
== END | disposition home or self-care (01) ==
LOC: RADUSWWP 09:01
PROVIDERS: ATTEND Family Medicine
DX: Q51.810 Arcuate uterus (principal)
CPT/HCPCS: 76830

== ENCOUNTER → 2022-04-23 | Outpatient (CLI) | payer BC ==
--- NOTE | 2022-04-27 17:26 | MM ---
Reason for Exam: Screening (asymptomatic). Last screening mammogram was performed 12 month(s) ago. Patient History: Menarche at age 13. First Full-Term at age 26. 02/23/2008, Benign Core Biopsy on the left side. 02/23/2008, Bilateral Benign Core Biopsy. Maternal aunt had breast cancer. Last menstrual period: 04/21/2022 Risk Values: Kandy 5 year model risk: 2.4%. NCI Lifetime model risk: 16.4%. Film Views: Bilateral CC views were taken. Bilateral MLO views were taken. Prior Study Comparison: 12/04/2018 Right Diagnostic Mammogram, [facility]. 06/04/2019 Bilateral Screening Mammogram, [facility]. 04/22/2021 Bilateral Screening Mammogram, [facility]. Tissue Density: The breast tissue is heterogeneously dense. This may lower the sensitivity of mammography. Findings: Analyzed By CAD. 2 microclips within the left breast from prior biopsies. Chronic nodularity lateral left breast. Additional areas of asymmetric density remain unchanged. No significant change from prior exams. Overall Assessment: Benign, BI-RAD 2 Management: Screening Mammogram of both breasts in 1 year. A clinical breast exam by your physician is recommended on an annual basis and results should be correlated with mammographic findings. Also, the patient should continue monthly self breast exams. Electronically signed and approved by: Сергей Hampton M.D. Radiologist
== END | disposition home or self-care (01) ==
LOC: RADMAMWWP 09:24
PROVIDERS: ATTEND Obstetrics & Gynecology
DX: Z12.31 Encounter for screening mammogram for malignant neoplasm of breast (principal); Z80.3 Family history of malignant neoplasm of breast
CPT/HCPCS: 77067

== ENCOUNTER → 2022-08-10 | Outpatient (CLI) | payer BC ==
--- NOTE | 2022-08-10 12:22 | CT ---
EXAMINATION TYPE: CT soft tissue neck w con DATE OF EXAM: 08/10/2022 HISTORY: Swelling, mass, lump in neck after eating. COMPARISON: NONE CT DLP: 653 mGycm. Automated Exposure Control for Dose Reduction was Utilized. TECHNIQUE: CT scan of the neck is performed with IV Contrast, patient injected with 70 ml mL of Isov ue 300, axial images are obtained, coronal and sagittal reformatted images are reviewed. FINDINGS: Airway: No gross abnormality seen. Parotid/submandibular glands: No gross abnormality seen. Carotid/Vascular Structures: No significant finding. Osseous Structures: No suspicious finding. Other: No definitive abnormal greater than 1 cm neck adenopathy IMPRESSION: No significant abnormality is seen. Unremarkable study.
== END | disposition home or self-care (01) ==
LOC: RADCTMAIN 10:20
PROVIDERS: ATTEND Otolaryngology
DX: R22.1 Localized swelling, mass and lump, neck (principal)
CPT/HCPCS: 70491; Q9967

== ENCOUNTER → 2022-08-17 | Outpatient (CLI) | payer BC | END | disposition home or self-care (01) | LOC: LABWHC1 08:23 | PROVIDERS: ATTEND Otolaryngology | DX: R53.83 Other fatigue (principal); R68.2 Dry mouth, unspecified | CPT/HCPCS: 36415; 82330; 86235 ==

== ENCOUNTER → 2023-04-29 | Outpatient (CLI) | payer BC ==
--- NOTE | 2023-05-02 09:31 | MM ---
Reason for Exam: Screening (asymptomatic). Last mammogram was performed 1 year(s) and 1 month(s) ago. Patient History: Menarche at age 13. First Full-Term at age 26. 02/23/2008, Benign Core Biopsy on the left side. 02/23/2008, Bilateral Benign Core Biopsy. Maternal aunt had breast cancer. Risk Values: Kandy 5 year model risk: 2.3%. NCI Lifetime model risk: 16.0%. Prior Study Comparison: 06/04/2019 Bilateral Screening Mammogram, [facility]. 04/22/2021 Bilateral Screening Mammogram, [facility]. 04/23/2022 Bilateral MG screening mammo w CAD, [facility]. Tissue Density: The breast tissue is heterogeneously dense. This may lower the sensitivity of mammography. Findings: Analyzed By CAD. There are 2 biopsy clips redemonstrated scattered throughout the left breast. There is stable 8 mm oval circumscribed mass centrally in the left breast. There is no suspicious group of microcalcifications or new suspicious mass in either breast. Overall Assessment: Benign, BI-RAD 2 Management: Screening Mammogram of both breasts in 1 year. . Patient should continue monthly self-breast exams. A clinical breast exam by your physician is recommended on an annual basis. This exam should not preclude additional follow-up of suspicious palpable abnormalities. Note on Kandy scores and lifetime risk: 1. A Kandy score greater than 3% is considered moderate risk. If this is the case, consider specialist referral to assess eligibility for a risk reducing agent. 2. If overall lifetime risk for the development of breast cancer is 20% or higher, the patient may qualify for future screening with alternating mammogram and breast MRI. Electronically signed and approved by: Hayes Alvarenga M.D.
== END | disposition home or self-care (01) ==
LOC: RADMAMWWP 09:16
PROVIDERS: ATTEND Obstetrics & Gynecology
DX: Z12.31 Encounter for screening mammogram for malignant neoplasm of breast (principal); Z80.3 Family history of malignant neoplasm of breast; Z78.0 Asymptomatic menopausal state
CPT/HCPCS: 77063; 77067

== ENCOUNTER → 2023-09-02 | Outpatient (CLI) | payer BC ==
[2023-09-02 17:02] LABS: T4, Free (Free Thyroxine) 1.4 ng/dL (0.80-1.80)
[2023-09-05 16:13] LABS: Thyroxine Binding Globulin 40.4 ug/mL (14.0 - 31.0)
== END | disposition home or self-care (01) ==
LOC: LABWHC1 08:03
PROVIDERS: ATTEND Pediatrics Pediatric Infectious Diseases
DX: E03.9 Hypothyroidism, unspecified (principal); E06.3 Autoimmune thyroiditis
CPT/HCPCS: 36415; 84436; 84439; 84442; 84443; 84482; 86376

== ENCOUNTER → 2024-02-08 | Outpatient (CLI) | payer BC ==
--- NOTE | 2024-02-08 10:07 | US ---
EXAMINATION TYPE: US abdomen complete DATE OF EXAM: 02/08/2024 COMPARISON: CT 01/01/2022 CLINICAL INDICATION: Female, 48 years old with history of R10.9 UNSPECIFIED ABDOMINAL PAIN; pain righ t side TECHNIQUE: Multiple sonographic images of the abdomen are obtained. FINDINGS: EXAM MEASUREMENTS: Liver Length: 15.9 cm Gallbladder: Surgically absent CBD: .7 cm Spleen: 10 cm Right Kidney: 10.2 x 4.6 x 5.4 cm Left Kidney: 11.3 x 5.1 x 4.8 cm Pancreas: wnl Liver: wnl Gallbladder: Surgically absent Evidence for sonographic Lynch's sign: no CBD: wnl Spleen: wnl Right Kidney: wnl Left Kidney: Anechoic area upper pole 6.6 x 5.4 x 4.5 cm. Increased from 4.9 cm back on the 2021 C T. No hydronephrosis. Upper IVC: wnl Abd Aorta: wnl IMPRESSION: 1. Bile duct borderline to mildly dilated at 7 mm, likely due to postcholecystectomy status. Correlat e with alkaline phosphatase and bilirubin levels. 2. A benign upper pole cyst of the left kidney measuring 6.6 cm, increased from 4.9 cm back in 2021.
== END | disposition home or self-care (01) ==
LOC: RADUSWWP 09:14
PROVIDERS: ATTEND Family Medicine
DX: N28.1 Cyst of kidney, acquired (principal)
CPT/HCPCS: 76700

== ENCOUNTER → 2024-03-20 | Outpatient (CLI) | payer BC ==
[2024-03-20 19:03] LABS: Basophils # (A) 0.04 X 10*3/uL (0.00-0.10); Basophils % (A) 0.6 %; Eosinophils % (A) 1.6 %; HCT 41.2 % (37.2-46.3); HGB 13.8 g/dL (12.0-15.0); Lymphocytes % (A) 32.2 %; MCH 30.1 pg (27.0-32.0); MCHC 33.5 g/dL (32.0-37.0); Monocytes % (A) 8.1 %; NRBC Per 100 WBC 0 X 10*3/uL (0.00-0.01); Neutrophils # (A) 3.55 X 10*3/uL (1.80-7.70); Neutrophils % (A) 57.2 %; Platelet Count 207 X 10*3/uL (140-440); RBC 4.58 X 10*6/uL (4.10-5.20); RDW 13.2 % (11.5-14.5); WBC 6.21 X 10*3/uL (4.50-10.00)
[2024-03-20 20:50] LABS: ALT 12 U/L (8-44); AST 16 U/L (13-35); Albumin 4.5 g/dL (3.8-4.9); Albumin/Globulin Ratio 1.73 Ratio (1.60-3.17); Alkaline Phosphatase 73 U/L (41-126); BUN/Creat Ratio 14.88 Ratio (12.00-20.00); Blood Urea Nitrogen 11.9 mg/dL (9.0-27.0); Calcium 9.6 mg/dL (8.7-10.3); Carbon Dioxide 25.5 mmol/L (21.6-31.8); Chloride 101 mmol/L (96-109); Globulin 2.6 g/dL (1.6-3.3); Glucose 91 mg/dL (70-110); Potassium 3.9 mmol/L (3.5-5.5); Sodium 137 mmol/L (135-145); Total Bilirubin 0.7 mg/dL (0.3-1.2); Total Protein 7.1 g/dL (6.2-8.2)
== END | disposition home or self-care (01) ==
LOC: LABWHC1 16:09
PROVIDERS: ATTEND Internal Medicine Gastroenterology
DX: R10.11 Right upper quadrant pain (principal)
CPT/HCPCS: 36415; 80053; 85025

== ENCOUNTER → 2024-04-12 | Outpatient (CLI) | payer BC ==
--- NOTE | 2024-04-12 13:03 | CT ---
EXAMINATION TYPE: CT abdomen pelvis wo con CT DLP: 951 mGycm, Automated exposure control for dose reduction was used. DATE OF EXAM: 04/12/2024 12:16 PM COMPARISON: CT abdomen pelvis most recent from 01/01/2022 CLINICAL INDICATION:Female, 48 years old with history of K58.9 IRRITABLE BOWEL SYNDROME WITHOUT DIARR HEA; IBS without diarrhea, RT side abdomen pain for several months TECHNIQUE: Axial CT abdomen pelvis wo con;Sagittal and coronal reformats were created on a separate workstation. Contrast used: mL of , (none if empty) Oral contrast used: without Oral Contrast (none if empty) FINDINGS: LOWER CHEST: Unremarkable ABDOMEN LIVER: Unremarkable GALLBLADDER AND BILE DUCTS: Cholecystectomy clips are present. PANCREAS: Unremarkable. SPLEEN: Unremarkable. ADRENAL GLANDS: Unremarkable. KIDNEYS AND URETERS: Simple appearing renal cysts on the left. No evidence of hydronephrosis or renal calculus. The ureters are unremarkable. PELVIS BLADDER: Unremarkable REPRODUCTIVE: Left ovarian dominant follicle measuring 24 mm. ABDOMEN & PELVIS STOMACH AND BOWEL: No evidence of bowel obstruction. Appendix is normal. PERITONEUM/RETROPERITONEUM: No evidence of pneumoperitoneum or free fluid. VASCULATURE: No evidence of aortic aneurysm. MUSCULOSKELETAL: No acute osseous abnormalities LYMPH NODES: No gross evidence for lymphadenopathy. SOFT TISSUE/ABDOMINAL WALL: Unremarkable IMPRESSION: 1. No evidence for acute abdominal process. No finding within the right abdomen to definitively smith elate with patient's right-sided abdominal pain. Appendix is normal. No obstructive uropathy. No carmela l calculi. 2. Left ovarian dominant follicle measuring up to 24 mm. 3. Left renal cyst which is a simple noncontrast appearance.
== END | disposition home or self-care (01) ==
LOC: RADCTMAIN 07:50
PROVIDERS: ATTEND Family Medicine
DX: N28.1 Cyst of kidney, acquired (principal); K58.9 Irritable bowel syndrome, unspecified
CPT/HCPCS: 74176

== ENCOUNTER → 2024-06-22 | Outpatient (CLI) | payer BC ==
--- NOTE | 2024-06-25 09:28 | MM ---
Reason for Exam: Screening (asymptomatic). Last mammogram was performed 1 year(s) and 1 month(s) ago. Patient History: Menarche at age 13. First Full-Term at age 26. 02/23/2008, Benign Core Biopsy on the left side. 02/23/2008, Bilateral Benign Core Biopsy. Maternal aunt had breast cancer. Risk Values: Kandy 5 year model risk: 2.1%. NCI Lifetime model risk: 15.6%. Prior Study Comparison: 04/22/2021 Bilateral Screening Mammogram, [facility]. 04/23/2022 Bilateral MG screening mammo w CAD, [facility]. 04/29/2023 Bilateral MG 3D screening mammo w/cad, [facility]. Tissue Density: The breasts are heterogeneously dense, which may obscure small masses. Findings: Analyzed By CAD. There is no suspicious group of microcalcifications or new suspicious mass in either breast. Overall Assessment: Negative, BI-RAD 1 Management: Screening Mammogram of both breasts in 1 year. . Patient should continue monthly self-breast exams. A clinical breast exam by your physician is recommended on an annual basis. This exam should not preclude additional follow-up of suspicious palpable abnormalities. Note on Kandy scores and lifetime risk: 1. A Kandy score greater than 3% is considered moderate risk. If this is the case, consider specialist referral to assess eligibility for a risk reducing agent. 2. If overall lifetime risk for the development of breast cancer is 20% or higher, the patient may qualify for future screening with alternating mammogram and breast MRI. Electronically signed and approved by: Hay Wolf M.D. Radiologis
== END | disposition home or self-care (01) ==
LOC: RADMAMWWP 14:36
PROVIDERS: ATTEND Family Medicine
DX: Z12.31 Encounter for screening mammogram for malignant neoplasm of breast (principal); R92.333 Mammographic heterogeneous density, bilateral breasts; Z80.3 Family history of malignant neoplasm of breast
CPT/HCPCS: 77063; 77067

== ENCOUNTER → 2024-09-03 | Outpatient (CLI) | payer BC ==
[2024-09-03 11:45] LABS: ALT 23 U/L (8-44); AST 37 U/L (13-35); Albumin 4.2 g/dL (3.8-4.9); Albumin/Globulin Ratio 1.62 Ratio (1.60-3.17); Alkaline Phosphatase 66 U/L (41-126); BUN/Creat Ratio 12.25 Ratio (12.00-20.00); Blood Urea Nitrogen 9.8 mg/dL (9.0-27.0); Calcium 8.9 mg/dL (8.7-10.3); Carbon Dioxide 22.9 mmol/L (21.6-31.8); Chloride 105 mmol/L (96-109); Chol/HDL Ratio 2.69 Ratio; Globulin 2.6 g/dL (1.6-3.3); Glucose 96 mg/dL (70-110); LDL Cholesterol,Calculated 82.7 mg/dL (0.0-131.0); Sodium 140 mmol/L (135-145); Total Bilirubin 0.6 mg/dL (0.3-1.2); Total Protein 6.8 g/dL (6.2-8.2); VLDL Calculation 12.74 mg/dL (5.00-40.00)
[2024-09-04 14:31] LABS: APTT 40 Sec(s) (<43); Dilute Russell Viper Venom 33 Sec(s) (<44)
== END | disposition home or self-care (01) ==
LOC: LABWHC1 07:49
PROVIDERS: ATTEND Family Medicine
DX: K58.9 Irritable bowel syndrome, unspecified (principal)
CPT/HCPCS: 36415; 80053; 80061; 82306; 82607; 84443; 85613; 85730; 86038

== ENCOUNTER 2024-11-03 07:47 | Observation (INO) | payer BC ==
--- NOTE | 2024-11-03 08:07 | ED ---
General Adult HPI - General Chief complaint: Chest Pain Stated complaint: Chest pain Time Seen by Provider: 11/03/24 07:52 Source: patient, RN notes reviewed Mode of arrival: ambulatory Limitations: no limitations - History of Present Illness Initial comments: Patient is a 49-year-old female present to the emergency department with concerns with chest discomfort. Onset of symptoms was around 10 days ago. Discomfort feels like burning. There is some discomfort of the back as well. Patient does have worsening symptoms with exertion and he has some exertional dyspnea. Patient unclear if she has associated nausea as she does have some chronic stomach problems. Patient has felt a little bit sweaty with her symptoms. Discomfort is currently rated 4/10. - Related Data Home Medications Medication Instructions Recorded Confirmed Vortioxetine Hydrobromide 10 mg PO HS 03/18/21 03/18/21 [Trintellix] Allergies Allergy/AdvReac Type Severity Reaction Status Date / Time No Known Allergies Allergy Verified 11/03/24 07:48 Review of Systems ROS Statement: Those systems with pertinent positive or pertinent negative responses have been documented in the HPI. ROS Other: All systems not noted in ROS Statement are negative. Constitutional: Denies: fever Eyes: Denies: eye pain ENT: Denies: ear pain Respiratory: Reports: as per HPI. Denies: cough Cardiovascular: Reports: chest pain, dyspnea on exertion Endocrine: Denies: fatigue Gastrointestinal: Denies: abdominal pain Neurological: Denies: weakness Past Medical History Past Medical History: GERD/Reflux Additional Past Medical History / Comment(s): DIARRHEA, epigastric pain- right after eating History of Any Multi-Drug Resistant Organisms: None Reported Past Surgical History: Section, Cholecystectomy Additional Past Surgical History / Comment(s): COLONOSCOPY, EGD, C/S x 3 Past Anesthesia/Blood Transfusion Reactions: No Reported Reaction Past Psychological History: Anxiety, Depression Smoking Status: Never smoker Past Alcohol Use History: Rare Past Drug Use History: None Reported - Past Family History Father Family Medical History: Cancer General Exam Limitations: no limitations General appearance: alert, in no apparent distress Head exam: Present: normocephalic Eye exam: Present: normal appearance Neck exam: Present: normal inspection Respiratory exam: Present: normal lung sounds bilaterally. Absent: chest wall tenderness Cardiovascular Exam: Present: regular rate, normal rhythm, normal heart sounds Expanded Peripheral pulses: 2+: Radial (R), Radial (L), Posterior Tibialis (R), Posterior Tibialis (L) GI/Abdominal exam: Present: soft. Absent: tenderness Extremities exam: Present: normal inspection. Absent: pedal edema, calf te nderness Neurological exam: Present: alert Psychiatric exam: Present: normal affect, normal mood Skin exam: Present: normal color Course Vital Signs 11/03/24 11/03/24 11/03/24 07:49 08:16 08:38 Temperature 98.2 F Pulse Rate 87 92 84 Respiratory 18 18 16 Rate Blood Pressure 143/75 110/77 101/87 O2 Sat by Pulse 97 96 97 Oximetry 11/03/24 09:03 Temperature Pulse Rate 78 Respiratory 16 Rate Blood Pressure 96/81 O2 Sat by Pulse 96 Oximetry EKG Findings - EKG Results: EKG: interpreted by CLOVER, sinus rhythm, normal axis, normal QRS, normal ST/T Medical Decision Making - Medical Decision Making Was pt. sent in by a medical professional or institution (, PA, SLEEVER, urgent care, hospital, or [facility]...) When possible be specific @ -No Did you speak to anyone other than the patient for history (EMS, parent, family, police, friend...)? What history was obtained from this source @ -No Did you review nursing and triage notes (agree or disagree)? Why? @ -I reviewed and agree with nursing and triage notes Were old charts reviewed (outside hosp., previous admission, EMS record, old EKG, old radiological studies, urgent care reports/EKG's, [facility] records)? Report findings @ -No old charts were reviewed Differential Diagnosis (chest pain, altered mental status, abdominal pain women, abdominal pain men, vaginal bleeding, weakness, fever, dyspnea, syncope, headache, dizziness, GI bleed, back pain, seizure, CVA, palpatations, mental health, musculoskeletal)? @ -Differential Chest Pain: Stable Angina, Unstable Angina, STEMI, NSTEMI Aortic Dissection, Pneumothorax, Musculoskeletal, Esophageal Spasm GERD, Cholecystitis, Pancreatitis, Zoster, this is not meant to be an all-inclusive list. EKG interpreted by me (3pts min.). @ -As above X-rays interpreted by me (1pt min.). @ -Chest x-ray shows no acute process CT interpreted by me (1pt min.). @ -None done U/S interpreted by me (1pt. min.). @ -None done What testing was considered but not performed or refused? (CT, X-rays, U/S, labs)? Why? @ -None What meds were considered but not given or refused? Why? @ -None Did you discuss the management of the patient with other professionals (professionals i.e. Dr., PA, SLEEVER, lab, RT, psych nurse, social media campaign manager, nutrition consultant, teacher, stream control officer, mattress spring encaser)? Give summary @ -Case discussed with reny Choi with [facility] who will admit covering Dr. Diop Was smoking cessation discussed for >3mins.? @ -No Was critical care preformed (if so, how long)? @ -No Were there social determinants of health that impacted care today? How? (Homelessness, low income, unemployed, alcoholism, drug addiction, transportation, low edu. Level, literacy, decrease access to med. care, penitentiary, rehab)? @ -No Was there de-escalation of care discussed even if they declined (Discuss DNR or withdrawal of care, Hospice)? DNR status @ -No What co-morbidities impacted this encounter? (DM, HTN, Smoking, COPD, CAD, Cancer, CVA, ARF, Chemo, Hep., AIDS, mental health diagnosis, sleep apnea, morbid obesity)? @ -None Was patient admitted / discharged? Hospital course, mention meds given and route, prescriptions, significant lab abnormalities, going to OR and other pertinent info. @ -Patient presents with chest discomfort with typical symptoms. Patient will need admission with repeat cardiac enzyme testing and cardiology consult. Admission orders written. Consult placed. Patient reevaluated and updated. Undiagnosed new problem with uncertain prognosis? @ -No Drug Therapy requiring intensive monitoring for toxicity (Heparin, Nitro, Insulin, Cardizem)? @ -No Were any procedures done? @ -No Diagnosis/symptom? @ -Chest pain Acute, or Chronic, or Acute on Chronic? @ -Acute Uncomplicated (without systemic symptoms) or Complicated (systemic symptoms)? @ -Default Side effects of treatment? @ -No Exacerbation, Progression, or Severe Exacerbation? @ -No Poses a threat to life or bodily function? How? (Chest pain, [place], [place], pneumonia, PE, COPD, DKA, ARF, appy, cholecystitis, CVA, Diverticulitis, Homicidal, Suicidal, threat to staff... and all critical care pts) @ -Threat to cardiac function - Lab Data Result diagrams: 11/03/24 08:12 11/03/24 08:12 Lab Results 11/03/24 11/03/24 11/03/24 Range/Units 08:12 08:12 08:12 WBC 5.2 (3.8-10.6) k/uL RBC 4.70 (3.80-5.40) m/uL Hgb 14.0 (11.4-16.0) gm/dL Hct 42.5 (34.0-46.0) % MCV 90.6 (80.0-100.0) fL MCH 29.9 (25.0-35.0) pg MCHC 33.0 (31.0-37.0) g/dL RDW 12.9 (11.5-15.5) % Plt Count 250 (150-450) k/uL MPV 8.0 Neutrophils % 68 % Lymphocytes % 21 % Monocytes % 6 % Eosinophils % 3 % Basophils % 1 % Neutrophils # 3.5 (1.3-7.7) k/uL Lymphocytes # 1.1 (1.0-4.8) k/uL Monocytes # 0.3 (0-1.0) k/uL Eosinophils # 0.1 (0-0.7) k/uL Basophils # 0.0 (0-0.2) k/uL PT 10.4 (10.0-12.5) sec INR 0.9 (<1.2) APTT 24.9 (22.0-30.0) sec D-Dimer 0.38 (<0.60) mg/L FEU Sodium 138 (137-145) mmol/L Potassium 4.4 (3.5-5.1) mmol/L Chloride 105 (98-107) mmol/L Carbon Dioxide 24 (22-30) mmol/L Anion Gap 9 mmol/L BUN 7 (7-17) mg/dL Creatinine 0.68 (0.52-1.04) mg/dL Est GFR (CKD-EPI)AfAm >90 (>60 ml/min/1.73 sqM) Est GFR (CKD-EPI)NonAf >90 (>60 ml/min/1.73 sqM) Glucose 98 (74-99) mg/dL Calcium 9.0 (8.4-10.2) mg/dL Magnesium 1.8 (1.6-2.3) mg/dL Total Bilirubin 1.7 H (0.2-1.3) mg/dL AST 29 (14-36) U/L ALT 15 (4-34) U/L Alkaline Phosphatase 58 (38-126) U/L Troponin I (0.000-0.034) ng/mL Total Protein 7.5 (6.3-8.2) g/dL Albumin 4.5 (3.5-5.0) g/dL Amylase 62 (30-110) U/L Lipase 88 (23-300) U/L 11/03/24 Range/Units 08:12 WBC (3.8-10.6) k/uL RBC (3.80-5.40) m/uL Hgb (11.4-16.0) gm/dL Hct (34.0-46.0) % MCV (80.0-100.0) fL MCH (25.0-35.0) pg MCHC (31.0-37.0) g/dL RDW (11.5-15.5) % Plt Count (150-450) k/uL MPV Neutrophils % % Lymphocytes % % Monocytes % % Eosinophils % % Basophils % % Neutrophils # (1.3-7.7) k/uL Lymphocytes # (1.0-4.8) k/uL Monocytes # (0-1.0) k/uL Eosinophils # (0-0.7) k/uL Basophils # (0-0.2) k/uL PT (10.0-12.5) sec INR (<1.2) APTT (22.0-30.0) sec D-Dimer (<0.60) mg/L FEU Sodium (137-145) mmol/L Potassium (3.5-5.1) mmol/L Chloride (98-107) mmol/L Carbon Dioxide (22-30) mmol/L Anion Gap mmol/L BUN (7-17) mg/dL Creatinine (0.52-1.04) mg/dL Est GFR (CKD-EPI)AfAm (>60 ml/min/1.73 sqM) Est GFR (CKD-EPI)NonAf (>60 ml/min/1.73 sqM) Glucose (74-99) mg/dL Calcium (8.4-10.2) mg/dL Magnesium (1.6-2.3) mg/dL Total Bilirubin (0.2-1.3) mg/dL AST (14-36) U/L ALT (4-34) U/L Alkaline Phosphatase (38-126) U/L Troponin I <0.012 (0.000-0.034) ng/mL Total Protein (6.3-8.2) g/dL Albumin (3.5-5.0) g/dL Amylase (30-110) U/L Lipase (23-300) U/L Disposition Clinical Impression: Chest pain Disposition: ADMITTED IP TO THIS HOSP Is patient prescribed a controlled substance at d/c from ED?: No Referrals: Allen Otto MD [Primary Care Provider] - 1-2 days Time of Disposition: 09:54
[2024-11-03] MEDS: ASPIRIN 81 MG PO STA (08:15)
[2024-11-03 08:20] LABS: Basophils % (A) 1 %; Eosinophils # (A) 0.1 k/uL (0-0.7); Eosinophils % (A) 3 %; HCT 42.5 % (34.0-46.0); Lymphocytes # (A) 1.1 k/uL (1.0-4.8); Lymphocytes % (A) 21 %; MCH 29.9 pg (25.0-35.0); MCV 90.6 fL (80.0-100.0); Monocytes # (A) 0.3 k/uL (0-1.0); Monocytes % (A) 6 %; Neutrophils # (A) 3.5 k/uL (1.3-7.7); Neutrophils % (A) 68 %; Platelet Count 250 k/uL (150-450); RDW 12.9 % (11.5-15.5); WBC 5.2 k/uL (3.8-10.6)
--- NOTE | 2024-11-03 08:32 | XR ---
2 view chest HISTORY: Chest pain. COMPARISON: None TECHNIQUE: PA and lateral views chest obtained. FINDINGS: The lungs are clear of consolidative, interstitial or masslike opacity. There is no pleural effusion, pleural thickening or pneumothorax. The heart, pulmonary vasculature, mediastinum and cedric are within normal limits. The osseous structures and soft tissues of the thorax are intact. IMPRESSION: No significant abnormality. No acute cardiopulmonary disease. [facility], , 11/03/2024 8:29 AM
[2024-11-03 08:46] LABS: INR 0.9 (<1.2); Partial Thromboplastin Time 24.9 sec (22.0-30.0); Prothrombin Time 10.4 sec (10.0-12.5)
[2024-11-03 08:47] LABS: ALT 15 U/L (4-34); African American GFR (CKD) >90 (>60 ml/min/1.73 sqM); Amylase 62 U/L (30-110); Anion Gap 9 mmol/L; Blood Urea Nitrogen 7 mg/dL (7-17); Carbon Dioxide 24 mmol/L (22-30); Chloride 105 mmol/L (98-107); Glucose 98 mg/dL (74-99); Lipase 88 U/L (23-300); Non-African American GFR(CKD) >90 (>60 ml/min/1.73 sqM); Sodium 138 mmol/L (137-145); Total Bilirubin 1.7 mg/dL (0.2-1.3)
[2024-11-03 08:49] LABS: AST 29 U/L (14-36); Albumin 4.5 g/dL (3.5-5.0); Magnesium 1.8 mg/dL (1.6-2.3); Potassium 4.4 mmol/L (3.5-5.1); Total Protein 7.5 g/dL (6.3-8.2)
[2024-11-03 08:50] LABS: Alkaline Phosphatase 58 U/L (38-126)
[2024-11-03] MEDS: NITROGLYCERIN SL TABS 0.4 MG TAB SUBLINGUAL STA ×3 (09:15)
[2024-11-03] MEDS ORDERED: NITROGLYCERIN SL TABS 0.4 MG TAB SUBLINGUAL PRN (09:54)
--- NOTE | 2024-11-03 10:48 | P.HPIM ---
History of Present Illness H&P Date: 11/03/24 History of Presenting Illness: Patient is a very pleasant 49-year-old female with a past medical history of GERD and anxiety. She presented to the emergency department with a chief complaint of chest pain and palpitations. Patient reports over the past month she has been experiencing intermittent chest pain and palpitations. Patient reports pain is to her midsternal chest radiating into her back and between her shoulder blades. Patient reports occasionally she will have pain radiate into her left arm accompanied by tingling. Patient reports longstanding history of palpitations since the of her son but states she was worked up for this years ago and even wore an event monitor for 7 days but they did not find anything. Patient states over the past month this has worsened and has woken her from a sound sleep, occurred at rest, and with exertion. She denies any known cardiac history or family history of sudden cardiac before the age of 60. Patient denies having any headache, lightheadedness, dizziness, shortness of breath, cough or congestion, or experiencing any swelling in her lower extremities. Upon arrival to our facility, patient underwent evaluation in the emergency department. Vital signs upon arrival show blood pressure 143/75, heart rate 87, respiratory rate 18, temp 98.2 F, and SpO2 of 97% on room air. EKG completed showing normal sinus rhythm at 85 bpm with no significant T wave or ST abnormality showing no signs of acute ischemia upon personal review and interpretation. Chest x-ray negative for acute cardiopulmonary process. Labs completed and reviewed. CBC unremarkable. Coagulation profile normal findings. D-dimer 0.38. BMP unremarkable. Blood glucose 98. Magnesium normal findings at 1.8. Liver profile showing hyperbilirubinemia with total bili of 1.7 otherwise normal findings. Troponin was negative at less than 0.012. Amylase and lipase normal findings. Patient admitted under services with consultation to cardiology. Review of systems: Pertinent positives and negatives as discussed in HPI, a complete review of systems was performed and all other systems are negative. Physical exam: Vital signs reviewed and stable. General: Nontoxic, no distress and appears stated age. Derm: Skin warm and dry, normal coloration for ethnicity. Head: Atraumatic, normocephalic and symmetric. Eyes: EOM's intact, no lid lag, and anicteric sclera Mouth: no lip lesions, mucus membranes moist Cardiovascular: regular rate and rhythm with normal S1S2, no murmur, positive posterior tibial pulses bilaterally, and cap refill < 2 seconds. Lungs: Respirations even, regular, and unlabored on room air. Lungs CTA bilaterally, no rhonchi, no rales, no wheezing, and no accessory muscle usage. Abdominal: soft, nontender to palpation, no guarding, no appreciable organomegaly Ext: ROM intact. No gross muscle atrophy, no edema, no contractures Neuro: Speech clear, face symmetrical and CN II-XII grossly intact with no noted focal neuro deficits Psych: Alert and oriented to person, place, time, and situation. Appropriate and pleasant affect. Assessment and Plan of Care: Chest pain and palpitations, rule out acute coronary event Back pain, between shoulder blades Hyperbilirubinemia GERD Anxiety -Cardiology consulted, appreciate recommendations -Order placed for CT thoracic spine -Telemetry monitoring -Trend troponins -Aspirin 81 mg daily and atorvastatin 40 mg nightly. -Lipid profile with a.m. labs. -Echocardiogram -Order placed for ultrasound of liver/common bile duct for evaluation as patient does report previous incident of dilated common bile duct after laparoscopic cholecystectomy. -Order placed for TSH secondary to reports of palpitations, we will also repeat morning CBC, CMP, and magnesium levels along with fractionated bilirubin for further evaluation. -Patient to continue daily medication regimen with Wellbutrin 150 mg daily and Protonix 40 mg daily. Data and imaging reviewed: As stated above in HPI CODE STATUS: Full Code DVT prophylaxis: Heparin Anticipated discharge date: Pending clinical course Anticipated discharge place: Home Patient was seen independently by Nurse Practitioner. This document was prepared using [employer] dictation software. Please allow for errors in spray ii painter while rare they do occur. Jimbo Cullen NP rendered care for this patient independently, reviewed the findings and plan as documented in the note above and agree with plan. I did not physically speak with or examine the patient on this date. Past Medical History Past Medical History: GERD/Reflux Additional Past Medical History / Comment(s): DIARRHEA, epigastric pain- right after eating History of Any Multi-Drug Resistant Organisms: None Reported Past Surgical History: Section, Cholecystectomy Additional Past Surgical History / Comment(s): COLONOSCOPY, EGD, C/S x 3 Past Anesthesia/Blood Transfusion Reactions: No Reported Reaction Past Psychological History: Anxiety, Depression Smoking Status: Never smoker Past Alcohol Use History: Rare Past Drug Use History: None Reported - Past Family History Father Family Medical History: Cancer Medications and Allergies Home Medications Medication Instructions Recorded Confirmed Type Omeprazole [PriLOSEC] 40 mg PO DAILY 11/03/24 11/03/24 History buPROPion XL [Wellbutrin XL] 150 mg PO DAILY 11/03/24 11/03/24 History Allergies Allergy/AdvReac Type Severity Reaction Status Date / Time No Known Allergies Allergy Verified 11/03/24 10:21 Physical Exam Vitals: Vital Signs Temp Pulse Resp BP Pulse Ox 11/03/24 10:21 98.4 F 94 16 106/84 96 11/03/24 09:03 78 16 96/81 96 11/03/24 08:38 84 16 101/87 97 11/03/24 08:16 92 18 110/77 96 11/03/24 07:49 98.2 F 87 18 143/75 97 Intake and Output 11/02/24 11/03/24 11/03/24 22:59 06:59 14:59 Other: Weight 79.379 kg Results CBC & Chem 7: 11/03/24 08:12 11/03/24 08:12 Labs: Abnormal Lab Results - Last 24 Hours (Table) 11/03/24 Range/Units 08:12 Total Bilirubin 1.7 H (0.2-1.3) mg/dL
--- NOTE | 2024-11-03 11:29 | CT ---
EXAMINATION TYPE: CT thor lumbar spine wo con DATE OF EXAM: 11/03/2024 COMPARISON: None CLINICAL INDICATION: Female, 49 years old with history of back pain, tingling left arm; PHH, BACK FORD N CT DLP: 1112.9 mGycm Automated exposure control for dose reduction was used. FINDINGS: The thoracic and lumbar vertebral segments are normal in height and alignment and there is no fractur e or subluxation. In the mid to lower thoracic spine there is mild spondylosis indicating mild degenerative disc diseas e. The lumbar disc spaces are well preserved and there is no significant degenerative disc disease. T here are no large thoracic or lumbar disc herniations. There is no spinal stenosis. There is no bony neural foraminal stenosis. There is mild facet arthropathy lower lumbar spine. Juanjo misha soft tissues are unremarkable. 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 Mild facet arthropathy in t he lumbar spine. No other significant abnormality seen. [facility], Workstation: JAMES 11/03/2024 11:27 AM
[2024-11-03] MEDS: MAG HYDROX/AL HYDROX/SIMETH 30 ML, HYOSCYAMINE ELIXIR 10 ML, LIDOCAINE VISCOUS 2% 10 ML PO ONE (11:49)
[2024-11-03] MEDS: NITROGLYCERIN OINT 1 INCH/GM PACKET TOPICAL SCH (13:57)
[2024-11-03] MEDS: HEPARIN SODIUM,PORCINE 5,000 UNIT/ML 1 ML VIAL SQ SCH (18:27)
[2024-11-03] MEDS: ATORVASTATIN 40 MG TAB PO SCH (20:14)
--- NOTE | 2024-11-04 07:30 | US ---
EXAMINATION TYPE: US liver DATE OF EXAM: 11/04/2024 COMPARISON: NONE CLINICAL INDICATION: Female, 49 years old with history of eval CBD, pt reports hx of enlargement s/p mickie; GB removed. RUQ pain. TECHNIQUE: Grayscale and color Doppler imaging of the right upper quadrant was performed. FINDINGS: EXAM MEASUREMENTS: Liver Length: 16.6 cm CBD: 0.6 cm Right Kidney: 11.4 x 4.8 x 4.4 cm Pancreas: wnl Liver: wnl Gallbladder: Surgically absent Evidence for sonographic Lynch's sign: neg CBD: wnl Right Kidney: No hydronephrosis or masses seen IMPRESSION: Surgical absence of the gallbladder. No other significant abnormality seen. [facility], , 11/04/2024 7:27 AM
[2024-11-04 07:45] LABS: HCT 42.7 % (34.0-46.0); HGB 14.2 gm/dL (11.4-16.0); MCH 30.4 pg (25.0-35.0); MCHC 33.1 g/dL (31.0-37.0); MCV 91.6 fL (80.0-100.0); Mean Platelet Volume 7.7; Platelet Count 238 k/uL (150-450); RBC 4.67 m/uL (3.80-5.40); WBC 5.4 k/uL (3.8-10.6)
[2024-11-04 08:00] LABS: ALT 16 U/L (4-34); AST 19 U/L (14-36); African American GFR (CKD) >90 (>60 ml/min/1.73 sqM); Albumin 4.4 g/dL (3.5-5.0); Albumin/Globulin Ratio 1.5; Alkaline Phosphatase 71 U/L (38-126); Anion Gap 6 mmol/L; Bilirubin,Unconjugated 1.2 mg/dL (0.0-1.1); Blood Urea Nitrogen 9 mg/dL (7-17); Calcium 9.3 mg/dL (8.4-10.2); Carbon Dioxide 27 mmol/L (22-30); Chloride 104 mmol/L (98-107); Globulin 2.9 g/dL; Glucose 90 mg/dL (74-99); Magnesium 1.9 mg/dL (1.6-2.3); Non-African American GFR(CKD) >90 (>60 ml/min/1.73 sqM); Potassium 4.1 mmol/L (3.5-5.1); Sodium 137 mmol/L (137-145); Total Bilirubin 1.2 mg/dL (0.2-1.3); Total Protein 7.3 g/dL (6.3-8.2)
[2024-11-04] MEDS: ASPIRIN 81 MG PO SCH (08:39)
[2024-11-04] MEDS: PANTOPRAZOLE 40 MG TABLET PO SCH (08:41)
[2024-11-04] MEDS: buPROPion XL 150 MG TAB.ER.24H PO SCH (08:41)
[2024-11-04] MEDS ORDERED: ASPIRIN 325 MG TAB PO SCH (09:00)
--- NOTE | 2024-11-04 09:09 | CA ---
Transthoracic Echo Report Name: Rianna Mae Age: 49 Gender: F : 1975 Exam Date: 11/03/2024 14:16 Exam Location: [facility] Ht (in): 61 Wt (lb): 175 Ordering Physician: Jimbo Cullen Attending/Referring Phys: Sheet Metal Lay Out Worker Estrella Sierra RDCS Procedure CPT: Indications: CP, palpitations Cardiac Hx: Technical Quality: Good Contrast 1: Total Dose (mL): Contrast 2: Total Dose (mL): MEASUREMENTS (Male / Female) Normal Values 2D ECHO LV Diastolic Diameter PLAX 4.1 cm 4.2 - 5.9 / 3.9 - 5.3 cm LV Systolic Diameter PLAX 2.9 cm IVS Diastolic Thickness 1.1 cm 0.6 - 1.0 / 0.6 - 0.9 cm LVPW Diastolic Thickness 1.0 cm 0.6 - 1.0 / 0.6 - 0.9 cm LV Relative Wall Thickness 0.5 RV Internal Dim ED PLAX 3.0 cm LA Systolic Diameter LX 2.5 cm 3.0 - 4.0 / 2.7 - 3.8 cm LA Volume 35.7 cm??? 18 - 58 / 22 - 52 cm??? LA Volume Index 19.0 cm???/m??? 16 - 28 cm???/m??? M-MODE Aortic Root Diameter MM 2.7 cm AV Cusp Separation MM 2.0 cm DOPPLER AV Peak Velocity 135.6 cm/s AV Peak Gradient 7.4 mmHg MV Area PHT 4.0 cm??? Mitral E Point Velocity 102.3 cm/s Mitral A Point Velocity 64.5 cm/s Mitral E to A Ratio 1.6 MV Deceleration Time 187.8 ms TR Peak Velocity 221.1 cm/s TR Peak Gradient 19.6 mmHg Right Ventricular Systolic Press 24.6 mmHg FINDINGS Left Ventricle Left ventricular ejection fraction is estimated at 55-60 %. Mildly increased septal wall thickness. Mildly increased posterior wall thickness. Normal left ventricular wall motion. Right Ventricle Normal right ventricular size and function. Right ventricular systolic pressure within normal limits. Right Atrium Normal right atrial size. No right atrial thrombus or mass seen. Left Atrium Normal left atrial size. No left atrial thrombus or mass present. Mitral Valve Structurally normal mitral valve. Trace mitral regurgitation. Aortic Valve Trileaflet aortic valve. No aortic valve stenosis or regurgitation. Tricuspid Valve Structurally normal tricuspid valve. Mild tricuspid regurgitation. Pulmonic Valve Structurally normal pulmonic valve. No pulmonic regurgitation. Pericardium No pericardial or pleural effusion. Aorta Normal size aortic root and proximal ascending aorta. CONCLUSIONS Normal LV function Previewed by: Dr. Forrest La MD (Electronically Signed) Final Date: 04 November 2024 09:08
--- NOTE | 2024-11-04 09:57 | P.CRDCN ---
History of Present Illness History of present illness: HISTORY OF PRESENT ILLNESS: This is a 49-year-old female with a past medical history significant for anxiety, depression, and GERD. 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 We have been asked to see the patient in consultation for chest pain. Patient examined at the bedside by Dr. La. Patient reports she has been having chest pain on and off for the past week. She states the pain sometimes goes in between her shoulder blades as well. She states the pain is not necessarily exertionally related. Denies any nausea or vomiting. She also reports having occasional palpitations. Patient denies any known history of CAD. She is a non-smoker. DIAGNOSTICS: - EKG reveals sinus mechanism with no signs of acute ischemia - Chest xray negative for acute process - Laboratory data: WBC 5.4. Hemoglobin 14.2. Platelet count 238. D-dimer 0.38. Sodium 137. Potassium 4.1. BUN 9. Creatinine 0.74. Troponin negative x 3. TSH 0.474. - Current home cardiac medications include none - Most recent echocardiogram obtained this admission reveals ejection fraction 55 to 60%, trace MR, mild TR - Cardiac catheterization history: Patient denies REVIEW OF SYSTEMS: At the time of my exam: CONSTITUTIONAL: Denies fever or chills. HEENT: Denies blurred vision, vision changes, or eye pain. Denies hemoptysis CARDIOVASCULAR: Denies chest pain. Denies orthopnea. Denies PND. Denies pa lpitations RESPIRATORY: Denies shortness of breath. GASTROINTESTINAL: Denies abdominal pain. Denies nausea or vomiting. HEMATOLOGIC: Denies bleeding disorders. GENITOURINARY: Denies any blood in urine. SKIN: Denies pruitis. Denies rash. PHYSICAL EXAM: VITAL SIGNS: Reviewed. GENERAL: Well-developed in no acute distress. HEENT: Head is normocephalic. Pupils are equal, round. Sclerae anicteric. Mucous membranes of the mouth are moist. Neck supple. No JVD or thyromegaly LUNGS: Respirations even and unlabored. Lungs essentially clear to auscultation bilaterally. HEART: Regular rate and rhythm. S1 and S2 heard. ABDOMEN: Soft. Nondistended. Nontender. EXTREMITIES: Normal range of motion. No clubbing or cyanosis. Peripheral pulses intact. No lower extremity edema NEUROLOGIC: Awake and alert. Oriented x 3. ASSESSMENT: Chest pain, troponin negative x 3 Occasional palpitations History of cholecystectomy Anxiety Depression GERD PLAN: An acute coronary event has been ruled out 2D echo obtained and reviewed Patient started on aspirin and atorvastatin per primary medicine Patient to undergo stress echocardiogram tomorrow If negative, she may be discharged home from a cardiac standpoint Further recommendations pending patient course Nurse practitioner note has been reviewed by physician. Signing provider agrees with the documented findings, assessment, and plan of care documented by EMERGENCY RESPONSE COORDINATOR as a scribe. Past Medical History Past Medical History: GERD/Reflux Additional Past Medical History / Comment(s): DIARRHEA, epigastric pain- right after eating History of Any Multi-Drug Resistant Organisms: None Reported Past Surgical History: Section, Cholecystectomy Additional Past Surgical History / Comment(s): COLONOSCOPY, EGD, C/S x 3 Past Anesthesia/Blood Transfusion Reactions: No Reported Reaction Past Psychological History: Anxiety, Depression Smoking Status: Never smoker Past Alcohol Use History: Rare Past Drug Use History: None Reported - Past Family History Father Family Medical History: Cancer Medications and Allergies Home Medications Medication Instructions Recorded Confirmed Type Omeprazole [PriLOSEC] 40 mg PO DAILY 11/03/24 11/03/24 History buPROPion XL [Wellbutrin XL] 150 mg PO DAILY 11/03/24 11/03/24 History Allergies Allergy/AdvReac Type Severity Reaction Status Date / Time No Known Allergies Allergy Verified 11/03/24 10:21 Physical Exam Vitals: Vital Signs Temp Pulse Pulse Resp BP BP Pulse Ox 11/04/24 01:09 98.0 F 74 17 108/69 98 11/03/24 20:00 98.5 F 74 17 95/59 97 11/03/24 13:05 98.8 F 74 16 96/65 99 11/03/24 10:21 98.4 F 94 16 106/84 96 11/03/24 09:54 99 11/03/24 09:03 78 16 96/81 96 11/03/24 08:38 84 16 101/87 97 11/03/24 08:16 92 18 110/77 96 11/03/24 07:49 98.2 F 87 18 143/75 97 Intake and Output 11/03/24 11/04/24 11/04/24 22:59 06:59 14:59 Other: # Voids 2 2 Results 11/04/24 07:05 11/04/24 07:05 Cardiac Enzymes 11/03/24 11/03/24 11/03/24 Range/Units 08:12 08:12 11:10 AST 29 (14-36) U/L Troponin I <0.012 <0.012 (0.000-0.034) ng/mL 11/03/24 Range/Units 15:47 AST (14-36) U/L Troponin I <0.012 (0.000-0.034) ng/mL Coagulation 11/03/24 Range/Units 08:12 PT 10.4 (10.0-12.5) sec APTT 24.9 (22.0-30.0) sec CBC 11/03/24 Range/Units 08:12 WBC 5.2 (3.8-10.6) k/uL RBC 4.70 (3.80-5.40) m/uL Hgb 14.0 (11.4-16.0) gm/dL Hct 42.5 (34.0-46.0) % Plt Count 250 (150-450) k/uL Comprehensive Metabolic Panel 11/03/24 Range/Units 08:12 Sodium 138 (137-145) mmol/L Potassium 4.4 (3.5-5.1) mmol/L Chloride 105 (98-107) mmol/L Carbon Dioxide 24 (22-30) mmol/L BUN 7 (7-17) mg/dL Creatinine 0.68 (0.52-1.04) mg/dL Glucose 98 (74-99) mg/dL Calcium 9.0 (8.4-10.2) mg/dL AST 29 (14-36) U/L ALT 15 (4-34) U/L Alkaline Phosphatase 58 (38-126) U/L Total Protein 7.5 (6.3-8.2) g/dL Albumin 4.5 (3.5-5.0) g/dL Current Medications Generic Name Dose Route Start Last Admin Trade Name Freq PRN Reason Stop Dose Admin Aspirin 81 mg 11/04/24 09:00 Aspirin 81 Mg PO DAILY [facility] Atorvastatin Calcium 40 mg 11/03/24 21:00 11/03/24 20:14 Atorvastatin 40 Mg Tab PO 40 mg HS ROHIT Administration Bupropion HCl 150 mg 11/04/24 09:00 Bupropion Xl 150 Mg Tab.Er.24h PO DAILY ROHIT Heparin Sodium (Porcine) 5,000 unit 11/03/24 16:00 11/04/24 00:17 Heparin Sodium,Porcine 5,000 Unit/Ml 1 Ml Vial SQ Not Given Q8HR ROHIT Nitroglycerin 0.4 mg 11/03/24 09:54 Nitroglycerin Sl Tabs 0.4 Mg Tab SUBLINGUAL Q5M PRN Chest Pain Nitroglycerin 1 inch 11/03/24 12:00 11/04/24 05:37 Nitroglycerin Oint 1 Inch/Gm Packet TOPICAL Not Given Q6HR ROHIT Pantoprazole Sodium 40 mg 11/04/24 09:00 Pantoprazole 40 Mg Tablet PO DAILY ROHIT Intake and Output 11/03/24 11/04/24 11/04/24 22:59 06:59 14:59 Other: # Voids 2 2 11/03/24 08:12 11/03/24 08:12
[2024-11-04] MEDS: SUCRALFATE 1 GM TAB PO SCH (12:18)
[2024-11-04 12:52] LABS: Chol/HDL Ratio 2.33 Ratio; LDL Cholesterol,Calculated 72.6 mg/dL (0.0-131.0)
--- NOTE | 2024-11-04 13:05 | P.PN ---
Subjective Progress Note Date: 11/04/24 Hospital Course: Patient is a very pleasant 49-year-old female with a past medical history of GERD and anxiety. She presented to the emergency department with a chief complaint of chest pain and palpitations. Patient reports over the past month she has been experiencing intermittent chest pain and palpitations. Patient reports pain is to her midsternal chest radiating into her back and between her shoulder blades. Patient reports occasionally she will have pain radiate into her left arm accompanied by tingling. Patient reports longstanding history of p alpitations since the of her son but states she was worked up for this years ago and even wore an event monitor for 7 days but they did not find anything. Patient states over the past month this has worsened and has woken her from a sound sleep, occurred at rest, and with exertion. She denies any known cardiac history or family history of sudden cardiac before the age of 60. Patient denies having any headache, lightheadedness, dizziness, shortness of breath, cough or congestion, or experiencing any swelling in her lower extremities. Upon arrival to our facility, patient underwent evaluation in the emergency department. Vital signs upon arrival show blood pressure 143/75, heart rate 87, respiratory rate 18, temp 98.2 F, and SpO2 of 97% on room air. EKG completed showing normal sinus rhythm at 85 bpm with no significant T wave or ST abnormality showing no signs of acute ischemia upon personal review and interpretation. Chest x-ray negative for acute cardiopulmonary process. Labs completed and reviewed. CBC unremarkable. Coagulation profile normal findings. D-dimer 0.38. BMP unremarkable. Blood glucose 98. Magnesium normal findings at 1.8. Liver profile showing hyperbilirubinemia with total bili of 1.7 otherwise normal findings. Troponin was negative at less than 0.012. Amylase and lipase normal findings. Patient admitted under services with consultation to cardiology. CT thoracic spine showing mild multilevel degenerative changes in the mid and lower thoracic spine otherwise normal findings. Echocardiogram completed showing a preserved EF of 5 5 to 60% with no significant valvular or structural abnormalities reported. Liver ultrasound completed negative for significant abnormalities reporting liver and common bile duct within normal limits and no reported dilation of CBD. Troponins were trended negative at less than 0.02 x 3 draws. TSH 0.474. Patient evaluated by cardiology and they are planning to take patient for cardiac stress test tomorrow morning. Physical Exam: Patient was seen and fully evaluated at bedside this morning. She currently reports feeling well and denies having any current chest pain or palpitations now or throughout the night. She reports feeling nauseous with a lot of acid reflux after each meal and orders placed for Carafate 1 g with meals and nightly. Patient visiting with at bedside. She currently denies having any other questions, needs, complaints, or concerns. Vital signs reviewed and stable. General: Nontoxic, no distress and appears stated age. Derm: Skin warm and dry, normal coloration for ethnicity. Head: Atraumatic, normocephalic and symmetric. Eyes: EOM's intact, no lid lag, and anicteric sclera Mouth: no lip lesions, mucus membranes moist Cardiovascular: regular rate and rhythm with normal S1S2, no murmur, positive posterior tibial pulses bilaterally, and cap refill < 2 seconds. Lungs: Respirations even, regular, and unlabored on room air. Lungs CTA bilaterally, no rhonchi, no rales, no wheezing, and no accessory muscle usage. Abdominal: soft, nontender to palpation, no guarding, no appreciable organomegaly Ext: ROM intact. No gross muscle atrophy, no edema, no contractures Neuro: Speech clear, face symmetrical and CN II-XII grossly intact with no noted focal neuro deficits Psych: Alert and oriented to person, place, time, and situation. Appropriate and pleasant affect. Assessment and Plan of Care: Chest pain and palpitations, rule out acute coronary event Back pain, between shoulder blades Hyperbilirubinemia GERD Anxiety -Cardiology consulted, appreciate recommendations -Order placed for CT thoracic spine -Telemetry monitoring -Trend troponins -Aspirin 81 mg daily and atorvastatin 40 mg nightly. -Lipid profile with a.m. labs. -Echocardiogram -Order placed for ultrasound of liver/common bile duct for evaluation as patient does report previous incident of dilated common bile duct after laparoscopic cholecystectomy. -Order placed for TSH secondary to reports of palpitations, we will also repeat morning CBC, CMP, and magnesium levels along with fractionated bilirubin for further evaluation. -Patient to continue daily medication regimen with Wellbutrin 150 mg daily and Protonix 40 mg daily. Data and imaging reviewed: -CT thoracic spine showing mild multilevel degenerative changes in the mid and lower thoracic spine otherwise normal findings. -Echocardiogram completed showing a preserved EF of 55 to 60% with no significant valvular or structural abnormalities reported. -Liver ultrasound completed negative for significant abnormalities reporting liver and common bile duct within normal limits and no reported dilation of CBD. -Labs reviewed. Troponins were trended negative at less than 0.02 x 3 draws. TSH 0.474. CBC and BMP unremarkable. Liver profile unremarkable with exception of slightly elevated conjugated bilirubin of 1.2 however total bili decreased and within normal range at 1.2. Lipid profile unremarkable. CODE STATUS: Full Code DVT prophylaxis: Heparin Anticipated discharge date: Pending clinical course, patient scheduled to undergo cardiac stress test tomorrow morning. Anticipated discharge place: Home Patient was seen independently by Nurse Practitioner. This document was prepared using [employer] dictation software. Please allow for errors in general medical practitioner while rare they do occur. Jimbo Cullen NP rendered care for this patient independently, reviewed the find ings and plan as documented in the note above and agree with plan. I did not physically speak with or examine the patient on this date. Objective - Vital Signs Vital signs: Vital Signs Temp 98.0 F 11/04/24 07:00 Pulse 60 11/04/24 07:00 Resp 16 11/04/24 07:00 BP 104/66 11/04/24 07:00 Pulse Ox 98 11/04/24 07:00 FiO2 Intake & Output 11/03/24 11/04/24 11/04/24 18:59 06:59 18:59 Intake Total 118 Balance 118 Weight 79.379 kg Intake: Oral 118 Other: # Voids 2 2 - Labs CBC & Chem 7: 11/04/24 07:05 11/04/24 07:05 Labs: Abnormal Lab Results - Last 24 Hours (Table) 11/04/24 Range/Units 07:05 Unconjugated Bilirubin 1.2 H (0.0-1.1) mg/dL
[2024-11-04 19:41] VITALS: RESP 17
[2024-11-05 09:06] LABS: HCT 41.1 % (37.2-46.3); HGB 13.9 g/dL (12.0-15.0); MCHC 33.8 g/dL (32.0-37.0); MCV 88.6 FL (80.0-97.0); Mean Platelet Volume 10.4 FL (9.5-12.2); NRBC Per 100 WBC 0 X 10*3/uL (0.00-0.01); Platelet Count 229 X 10*3/uL (140-440); RBC 4.64 X 10*6/uL (4.10-5.20); RDW 13.2 % (11.5-14.5); WBC 6.78 X 10*3/uL (4.50-10.00)
[2024-11-05 09:58] VITALS: BP 120/87; PULSE 74; TEMP 98.3
--- NOTE | 2024-11-05 10:09 | P.PN ---
Subjective Progress Note Date: 11/05/24 HISTORY OF PRESENT ILLNESS: This is a 49-year-old female with a past medical history significant for an xiety, depression, and GERD. 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 We have been asked to see the patient in consultation for chest pain. Patient examined at the bedside by Dr. La. Patient reports she has been having chest pain on and off for the past week. She states the pain sometimes goes in between her shoulder blades as well. She states the pain is not necessarily exertionally related. Denies any nausea or vomiting. She also reports having occasional palpitations. Patient denies any known history of CAD. She is a non-smoker. DIAGNOSTICS: - EKG reveals sinus mechanism with no signs of acute ischemia - Chest xray negative for acute process - Laboratory data: WBC 5.4. Hemoglobin 14.2. Platelet count 238. D-dimer 0.38. Sodium 137. Potassium 4.1. BUN 9. Creatinine 0.74. Troponin negative x 3. TSH 0.474. - Current home cardiac medications include none - Most recent echocardiogram obtained this admission reveals ejection fraction 55 to 60%, trace MR, mild TR - Cardiac catheterization history: Patient denies 11/05/2024 Patient seen and examined. Patient is scheduled for stress echocardiogram today. She has been started on aspirin and atorvastatin by primary medicine. Echocardiogram as above. Blood pressure 136/76, heart rate 70, pulse ox 96% on room air. Patient denies having any chest pain, shortness of breath, lightheadedness or dizziness. PHYSICAL EXAM: VITAL SIGNS: Reviewed. GENERAL: Well-developed in no acute distress. HEENT: Head is normocephalic. Pupils are equal, round. Sclerae anicteric. Mucous membranes of the mouth are moist. Neck supple. No JVD or thyromegaly LUNGS: Respirations even and unlabored. Lungs essentially clear to auscultation bilaterally. HEART: Regular rate and rhythm. S1 and S2 heard. ABDOMEN: Soft. Nondistended. Nontender. EXTREMITIES: Normal range of motion. No clubbing or cyanosis. Peripheral pulses intact. No lower extremity edema NEUROLOGIC: Awake and alert. Oriented x 3. ASSESSMENT: Chest pain, troponin negative x 3 Occasional palpitations History of cholecystectomy Anxiety Depression GERD PLAN: An acute coronary event has been ruled out 2D echo obtained and reviewed Patient started on aspirin and atorvastatin per primary medicine Patient to undergo stress echocardiogram this morning If negative, she may be discharged home from a cardiac standpoint Further recommendations pending patient course Nurse practitioner note has been reviewed by physician. Signing provider agrees with the documented findings, assessment, and plan of care documented by OR RN as a scribe. Objective - Vital Signs Vital signs: Vital Signs Temp 98.5 F 11/05/24 02:00 Pulse 73 11/05/24 02:00 Resp 17 11/05/24 02:00 BP 136/76 11/05/24 02:00 Pulse Ox 96 11/05/24 02:00 FiO2 Intake & Output 11/04/24 11/05/24 11/05/24 18:59 06:59 18:59 Intake Total 768 Balance 768 Intake: Oral 768 Other: # Voids 4 2 # Bowel Movements 1 - Labs CBC & Chem 7: 11/05/24 04:04 11/04/24 07:05 Labs: Abnormal Lab Results - Last 24 Hours (Table) 11/04/24 Range/Units 07:05 HDL Cholesterol 62.60 H (40.00-60.00) mg/dL
--- NOTE | 2024-11-05 10:50 | CA ---
Stress Echo Report Rianna Mae Age: 49 Gender: F : 1975 Exam Date: 11/05/2024 09:43 Exam Location: [facility] Ht (in): 61 Wt (lb): 175 Ordering Physician: Nolvia Jain Referring Physician: [id number] [employer] Supervisor: MARILUZ Technologist Procedure CPT: Indication: CP ICD-9 Codes: Rhythm: Patient History: Chest pain and palpitations. Cardiac Medications: Medications in past 24 hours: Contrast: Stress Results Protocol: Ron Total dose(mL): Exercise Duration (min:sec): 9:[address] Depression (mm): Angina Score: Adair Score: METS: 10.5 Resting HR: 75 Resting BP: 111 / 70 Peak HR: 187 Peak BP: 132 / 67 Max Predicted HR: 172 109 % Max Predicted HR Target HR: 146 Double Product: [id number] Stress Summary: BP Response: Reason for Termination: MAX EXERTION/TARGET HR Cardiac Symptoms: NO SYMPTOMS ECG Analysis Resting ECG: Stress ECG: Arrhythmia: Echo Analysis Resting Echo: Peak Echo Analysis: MEASUREMENTS (Male/Female) Normal Values CONCLUSIONS Baseline EKG revealed a normal sinus rhythm without significant ST and T-wave changes. Patient walked for 9 minutes and achieved a maximum heart rate of 187 bpm which is available 100% of predicted maximal. She did not have any angina. There was no arrhythmia. There were no ST segment changes to indicate ischemia. This is a negative stress test with good exercise capacity Baseline echo images revealed normal wall motion wall thickening of all segments. At peak exercise there was good augmentation of left ventricular wall motion wall thickening of all segments suggesting that there is no evidence of stress-induced ischemia on this study Final impression: Good exercise capacity with a negative stress test by EKG criteria and normal stress echocardiogram without evidence of ischemia Dr. Daniel Pozo MD (Electronically Signed) Final Date: 05 November 2024 10:50
--- NOTE | 2024-11-05 12:11 | P.DS ---
Providers Date of admission: 11/03/24 09:55 Expected date of discharge: 11/05/24 Attending physician: Cori Shafer MD Consults: 11/03/24 09:54 Consult Physician Urgent Consulting Provider: Forrest La Consult Reason/Comments: cp Do you want consulting provider notified?: Yes Primary care physician: Allen Otto MD Hospital Course: Discharge Diagnosis: Chest pain and palpitations, acute coronary event ruled out. Troponins were negative at less than 0.012 x 3 draws. EKG showing sinus mechanism. Echoc ardiogram revealing a preserved EF of 55 to 60% and cardiac stress test was negative. Back pain, between shoulder blades. CT thoracic spine showing mild multilevel degenerative changes in the mid and lower thoracic spine otherwise normal findings. Hyperbilirubinemia. Resolved. GERD. Continue with Protonix 40 mg daily and was started on Carafate 1 g with meals and at bedtime. Anxiety. Patient to continue daily medication regimen with Wellbutrin 150 mg daily Hospital Course: Patient is a very pleasant 49-year-old female with a past medical history of GERD and anxiety. She presented to the emergency department with a chief complaint of chest pain and palpitations. Patient reports over the past month she has been experiencing intermittent chest pain and palpitations. Patient r eports pain is to her midsternal chest radiating into her back and between her shoulder blades. Patient reports occasionally she will have pain radiate into her left arm accompanied by tingling. Patient reports longstanding history of palpitations since the of her son but states she was worked up for this years ago and even wore an event monitor for 7 days but they did not find anything. Patient states over the past month this has worsened and has woken her from a sound sleep, occurred at rest, and with exertion. She denies any known cardiac history or family history of sudden cardiac before the age of 60. Patient denies having any headache, lightheadedness, dizziness, shortness of breath, cough or congestion, or experiencing any swelling in her lower extremities. Upon arrival to our facility, patient underwent evaluation in the emergency department. Vital signs upon arrival show blood pressure 143/75, heart rate 87, respiratory rate 18, temp 98.2 F, and SpO2 of 97% on room air. EKG completed showing normal sinus rhythm at 85 bpm with no significant T wave or ST abnormality showing no signs of acute ischemia upon personal review and interpretation. Chest x-ray negative for acute cardiopulmonary process. Labs completed and reviewed. CBC unremarkable. Coagulation profile normal findings. D-dimer 0.38. BMP unremarkable. Blood glucose 98. Magnesium normal findings at 1.8. Liver profile showing hyperbilirubinemia with total bili of 1.7 otherwise normal findings. Troponin was negative at less than 0.012. Amylase and lipase normal findings. Patient admitted under services with consultation to cardiology. CT thoracic spine showing mild multilevel degenerative changes in the mid and lower thoracic spine otherwise normal findings. Echocardiogram completed showing a preserved EF of 55 to 60% with no significant valvular or structural abnormalities reported. Liver ultrasound completed negative for significant abnormalities reporting liver and common bile duct within normal limits and no reported dilation of CBD. Troponins were trended negative at less than 0.02 x 3 draws. TSH 0.474. Patient evaluated by cardiology and they are planning to take patient for cardiac stress test tomorrow morning. Stress test was negative. 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 Physical Exam: Vital signs reviewed and stable. General: Nontoxic, no distress and appears stated age. Derm: Skin warm and dry, normal coloration for ethnicity. Head: Atraumatic, normocephalic and symmetric. Eyes: EOM's intact, no lid lag, and anicteric sclera Mouth: no lip lesions, mucus membranes moist Cardiovascular: regular rate and rhythm with normal S1S2, no murmur, positive posterior tibial pulses bilaterally, and cap refill < 2 seconds. Lungs: Respirations even, regular, and unlabored on room air. Lungs CTA b ilaterally, no rhonchi, no rales, no wheezing, and no accessory muscle usage. Abdominal: soft, nontender to palpation, no guarding, no appreciable organomegaly Ext: ROM intact. No gross muscle atrophy, no edema, no contractures Neuro: Speech clear, face symmetrical and CN II-XII grossly intact with no noted focal neuro deficits Psych: Alert and oriented to person, place, time, and situation. Appropriate and pleasant affect. A total of 35 minutes of time were spent preparing this complex discharge summary. Pt was discharged on 11/05/2024 at 12:09 PM. Patient was seen independently by Nurse Practitioner. This document was prepared using [employer] dictation software. Please allow for errors in carpet floor layer apprentice while rare they do occur. Jimbo Cullen NP rendered care for this patient independently, reviewed the findings and plan as documented in the note above. I did not physically speak with or examine the patient on this date. Patient Condition at Discharge: Stable Plan - Discharge Summary Discharge Rx Participant: No New Discharge Prescriptions: New Sucralfate [Carafate] 1 gm PO ACHS 30 Days #120 tab Continue buPROPion XL [Wellbutrin XL] 150 mg PO DAILY Omeprazole [PriLOSEC] 40 mg PO DAILY Discharge Medication List Omeprazole [PriLOSEC] 40 mg PO DAILY 11/03/24 [History] buPROPion XL [Wellbutrin XL] 150 mg PO DAILY 11/03/24 [History] Sucralfate [Carafate] 1 gm PO ACHS 30 Days #120 tab 11/05/24 [Rx] Follow up Appointment(s)/Referral(s): Vy Moore MD [STAFF PHYSICIAN] - 1 Week Allen Otto MD [Primary Care Provider] - 1-2 days Patient Instructions/Handouts: Chest Pain (DC) Activity/Diet/Wound Care/Special Instructions: . Activity: As tolerated. Take breaks as needed. Diet: Heart healthy and carb consistent diet. Avoid salts, or foods with hidden salts such as canned or boxed foods and frozen dinners. Extra salt makes your heart work harder and traps the fluid in your body for longer. Special Instructions: Take all of your medications as directed and remember to keep all of your doctor's appointments and follow-up as needed. Wishing you and your family a truly wonderful and blessed holiday season and a happy healthy new year!!! Thank you for allowing us to participate in your care, it was truly a pleasure having you for our patient!!! . Discharge Disposition: HOME SELF-CARE
== END 2024-11-05 12:32 | disposition home or self-care (01) ==
LOC: EC 07:47 → 6NMEDSUR 09:55
PROVIDERS: ADMIT Family Medicine; ATTEND Family Medicine
DX: R07.89 Other chest pain (principal); I08.1 Rheumatic disorders of both mitral and tricuspid valves; M54.6 Pain in thoracic spine; R20.2 Paresthesia of skin; K21.9 Gastro-esophageal reflux disease without esophagitis; F41.9 Anxiety disorder, unspecified; F32.A Depression, unspecified; E80.6 Other disorders of bilirubin metabolism; Z79.899 Other long term (current) drug therapy; Z90.49 Acquired absence of other specified parts of digestive tract
CPT/HCPCS: 96372 ×2; 99285; 36415; 93005; 93306; 93351; 85379; 80061; 80053 ×2; 84443; 82150; 82248; 83690; 83735 ×2; 84484; 85025; 85027 ×2; 85610; 85730; 71046; 76705; 72128; 72131; G0378 ×3; J1644 ×2

== ENCOUNTER → 2025-03-29 | Outpatient (CLI) | payer BC ==
--- NOTE | 2025-03-29 15:36 | CT ---
EXAMINATION TYPE: CT abdomen pelvis wo con CT DLP: 851 mGycm, Automated exposure control for dose reduction was used. DATE OF EXAM: 03/29/2025 3:18 PM COMPARISON: Ultrasound liver 11/04/2024, CT abdomen and pelvis 04/12/2024, 01/01/2022, 02/22/2017 CLINICAL INDICATION:Female, 49 years old with history of R10.11 RUQ PAIN; Right upper abdominal/lower rib pain x 1 year. Periodic pain since weightloss injection. TECHNIQUE: Standard CT of the abdomen and pelvis without IV or oral contrast. Lack of IV or oral co ntrast limits evaluation of solid and hollow organ viscera. Coronal and sagittal reformats were perfo rmed. FINDINGS: LOWER CHEST: Unremarkable noncontrast appearance ABDOMEN LIVER: Unremarkable noncontrast appearance GALLBLADDER AND BILE DUCTS: The gallbladder is surgically absent. No biliary ductal dilatation. PANCREAS: Unremarkable noncontrast appearance SPLEEN: Unremarkable noncontrast appearance ADRENAL GLANDS: Unremarkable noncontrast appearance. KIDNEYS AND URETERS: No evidence of hydronephrosis or renal calculus. Stable left renal 5.4 cm upper pole simple-appearing calculus. No follow up recommended. PELVIS BLADDER: Underdistended but grossly unremarkable REPRODUCTIVE: Unremarkable noncontrast appearance ABDOMEN & PELVIS STOMACH AND BOWEL: Small hiatal hernia, duodenum is unremarkable. No focal bowel wall thickening or s urrounding inflammatory changes identified. The appendix is within normal limits. No evidence of laura l obstruction. PERITONEUM: No evidence of pneumoperitoneum or free fluid. VASCULATURE: No evidence of aortic aneurysm. MUSCULOSKELETAL: No acute osseous abnormalities LYMPH NODES: No gross evidence for lymphadenopathy. SOFT TISSUE/ABDOMINAL WALL: Unremarkable IMPRESSION: 1. No CT evidence for acute abdominal/pelvic process within limitations of a noncontrast exam 2. Small hiatal hernia. [facility], , 03/29/2025 3:34 PM
== END | disposition home or self-care (01) ==
LOC: RADCTMAIN 15:03
PROVIDERS: ATTEND Family Medicine
DX: R10.11 Right upper quadrant pain (principal); K44.9 Diaphragmatic hernia without obstruction or gangrene
CPT/HCPCS: 74176

== ENCOUNTER → 2025-06-24 | Outpatient (CLI) | payer BC ==
--- NOTE | 2025-06-24 17:55 | MM ---
Reason for Exam: Screening (asymptomatic). Last screening mammogram was performed 12 month(s) ago. Patient History: Menarche at age 13. First Full-Term at age 26. 02/23/2008, Benign Core Biopsy on the left side. 02/23/2008, Bilateral Benign Core Biopsy. Maternal aunt had breast cancer. Risk Values: Kandy 5 year model risk: 1.9%. NCI Lifetime model risk: 15.3%. Prior Study Comparison: 04/23/2022 Bilateral MG screening mammo w CAD, [facility]. 04/29/2023 Bilateral MG 3D screening mammo w/cad, [facility]. 06/22/2024 Bilateral MG 3D screening mammo w/cad, [facility]. Tissue Density: The breasts are heterogeneously dense, which may obscure small masses. Findings: Analyzed By CAD. Chronic nodularity on the left. 2 microclips on the left side from prior biopsies. There is no suspicious group of microcalcifications or new suspicious mass in either breast. Overall Assessment: Benign, BI-RAD 2 Management: Screening Mammogram of both breasts in 1 year. . Patient should continue monthly self-breast exams. A clinical breast exam by your physician is recommended on an annual basis. This exam should not preclude additional follow-up of suspicious palpable abnormalities. Note on Kandy scores and lifetime risk: 1. A Kandy score greater than 3% is considered moderate risk. If this is the case, consider specialist referral to assess eligibility for a risk reducing agent. 2. If overall lifetime risk for the development of breast cancer is 20% or higher, the patient may qualify for future screening with alternating mammogram and breast MRI. [facility], , 06/24/2025 5:53 PM. Electronically signed and approved by: Сергей Hampton M.D. Radiologist
== END | disposition home or self-care (01) ==
LOC: RADMAMWWP 09:56
PROVIDERS: ATTEND Family Medicine
DX: Z12.31 Encounter for screening mammogram for malignant neoplasm of breast (principal); R92.333 Mammographic heterogeneous density, bilateral breasts; Z80.3 Family history of malignant neoplasm of breast
CPT/HCPCS: 77063; 77067